=== PATIENT | male | born 1930 | race Caucasian/White ===

== ENCOUNTER 2020-10-12 20:54 | Inpatient (IN) | payer MEDICARE, MEDICAID ==
[~2020-10-12] VITALS: Ht 172.7 cm; Wt 73.6 kg
[~2020-10-12 20:54] MED LIST: ALBUTEROL; ASPI81CH21 PO; BRIN1OPH OU; DILT30TA PO; DOCU100C17 PO; DOCU5LIQ PO; ECOT81TA5 PO; FLOM0.4C39 PO; FURO20TA2 PO; INCR1INH INH; IPRATROPIUM; LEVO500I7 PO; MAPA500C PO; METO1TAB32 PO; MM S100C PO; PERF20NE2 INH; PRED10TA2 PO; PRED20TA PO; PROV108A INH; SENO8.6T9 PO; SPIRIVA INH; SYMB16INH INH; SYMBICORT; TYLE325T5 PO; VENTAER IN; XALA0.007 OU
[2020-10-12 22:45] VITALS: BP 102/56
[2020-10-12] MEDS ORDERED: MAALOX 30 ML SUSP *UDC PO PRN (22:45)
[2020-10-12] MEDS ORDERED: MOM 30ML SUSPENSION UDC PO PRN (22:45)
--- NOTE | 2020-10-12 23:17 | HPEPDOC ---
General Date of Admission Oct 12, 2020 at 22:38 Date of Service: Oct 12, 2020 Attending Physician: MARILU GOMEZ MD Chief Complaint shortness of breath History of Present Illness This is a 89 year old gentleman who presents to [facility], [place] with c/o shortness of breath since last June, but has gotten progressively worse . He states he has been coughing up more sputum more than usual and has been febrile at home, but denies chills. At [facility] ER, he was found to be COVID positive and in rapid Afib and was transferred here for a higher level of care. 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 Urinary stent placement. Knee surgery, unknown side Family history: Siblings, brother 1deceased at age 62. Liver and stomach cancer. Brother 2 alive, heart disease Sister , leukemia. Father , heart attack. Mother , stroke. Daughter, fibromyalgia, kidney problems Social history: Quit smoking 1997 Rare alcohol use; denies illicit drug use PHYSICAL EXAM: VS: see below VITALS: See below. GENERAL: Pt is laying comfortably, mild respiratory distress, audible wheezing, no deficits in speech and language HEENT: EOMI. Conjunctiva and lids normal. CARDIOVASCULAR: Regular rate and rhythm. No murmurs, rubs, or gallops appreciated. PULMONARY: wheezing appreciated, rhonci in bilat bases. ABD: No tenderness to palpation. Normoactive bowel sounds to all four quadrants. No guarding on palpation EXTREMITIES: 2+ DP pulses. trace pitting edema. NEURO: No focal neurological deficits. CN II-12 preserved. Strength 5/5 througho ut; sensation intact ASSESSMENT AND PLAN #Severe Sepsis #lactic acidosis - meet sirs criteria: leukocytosis, febrile, RR>22 -AAOX3, soft blood pressure initially in one teens on the tele monitor during examination - In [facility] ER received fluid resusictation - will start him on LR @200cc/h - will order UA with cx and blood cx x2 ordered pending - will order sputum cx and gram stain - procal pending - started on IV vanc and zosyn - will order for MRSA screen and close monitor of vanc trough - will order XR chest ordered #Afib RVR - [facility] started pt on cardizem gtt - EKG reviewed - Will start pt on digoxin for rate control. - Will start eliquis for anticoagulation - HR was 130s, and the last measured was one teens. - ECHO ordered- pending - am team consider consultation cardio as needed. - f/u with pro bnp and tsh and t3 serial trops and ECHO results #PNA - Procal pending - C/W vanc and zosyn for empiric covg - pending sputum cx blood and ua urine cx #CHF ? (unspecified) -ECHO ordered- pending - will hold diuresis as patient -c/w home meds #COVID 19 -Per nursing, [facility] ED nurse said that he was admitted to [facility] 2 weeks ago and tested positive then -decadron 6 iv daily - famotidine #Essential HTN -c/w home med DVT ppx: eliquis gi ppx :famotidine fluid LR @200cc/h Diet: 2gNa code status: full Home Medications Scheduled Aspirin (Aspirin EC) 81 Mg Tablet.dr, 81 MG PO DAILY, (Reported) Budesonide/Formoterol (Symbicort 160-4.5 Mcg Inhaler) 6 Gm Hfa.aer.ad, 2 PUFF INH BID, (Reported) Denosumab Injection (Prolia) 60 Mg/1 Ml Syringe, 60 MG SC ASDIRECTED, (Reported) EVERY 6 MONTHS: TAKEN AROUND September Digoxin (Digoxin) 125 Mcg Tablet, 125 MCG PO DAILY, (Reported) Docusate Sodium (Docusate Sodium) 100 Mg Capsule, 100 MG PO BID, (Reported) Metoprolol Succinate (Metoprolol Succinate) 50 Mg Tab.er.24h, 50 MG PO DAILY, (Reported) Midodrine HCl (Midodrine HCl) 2.5 Mg Tablet, 2.5 MG PO TID, (Reported) Scopolamine (Transderm-Scop) 1 Each Patch.td.3, 1.5 MG TOP Q3RD, (Reported) Tamsulosin HCl (Flomax) 0.4 Mg Capsule, 0.4 MG PO DAILY, (Reported) Travoprost (Travatan Z) 0.004% 2.5ML Drops, 1 DROP OU QHS, (Reported) Umeclidinium [place] (Incruse Ellipta) 62.5 Mcg Blst.w.dev, 1 PUFF INH DAILY, (Reported) Vortioxetine Hydrobromide (Trintellix) 10 Mg Tablet, 10 MG PO DAILY, (Reported) dilTIAZem HCl (Diltiazem 24Hr Cd) 120 Mg Cap.er.24h, 120 MG PO DAILY, (Reported) Scheduled PRN Albuterol Sulfate (Proair Hfa) 8.5 Gm Hfa.aer.ad, 2 PUFF INH Q4H PRN for SHORTNESS OF BREATH, (Reported) Alprazolam (Alprazolam) 0.25 Mg Tablet, 0.25 MG PO TID PRN for ANXIETY, (Reported) Benzonatate (Benzonatate) 100 Mg Capsule, 100 MG PO Q8H PRN for COUGH, (Reported) Bisacodyl (Bisacodyl) 10 Mg Supp.rect, 10 MG TN DAILY PRN for CONSTIPATION, (Reported) Ipratropium/Albuterol Sulfate (Iprat-Albut 0.5-3(2.5) mg/3 ml) 3 Ml Ampul.neb, 3 ML INH TID PRN for SHORTNESS OF BREATH, (Reported) Ondansetron HCl (Ondansetron HCl) 4 Mg Tablet, 4 MG PO Q8H PRN for NAUSEA OR VOMITING, (Reported) Protein Supplement (Protein Powder) 454 Gm Powder, 1 DOSE PO BID PRN for WEIGHT LOSS, (Reported) Tramadol HCl (Tramadol HCl) 50 Mg Tablet, 50 MG PO BID PRN for PAIN, (Reported) Miscellaneous Medications [Patient Comment] , (Reported) MED REC COMPLETED VIA EXTERNAL MED HISTORY AND PHONE CALL WITH SPOUSE Allergies Coded Allergies: Sulfa (Sulfonamide Antibiotics) (Verified Adverse Reaction, Unknown, VOMIT, 10/12/20) A-FIB/CHADSVASC A-FIB History Current/History of A-Fib/PAF?: Yes Current PO Anticoag Therapy: Yes Vital Signs latest vs 97.4 irregular rhythm 99 RR 20 bp 92/51 MAP 65 4L NC satting 98% Plan / VTE VTE Prophylaxis Ordered?: Yes GME ATTESTATION GME ATTESTATION My faculty preceptor for this patient encounter was physically present during the encounter and was fully available. All aspects of the patient interview, examination, medical decision making process, and medical care plan development were reviewed and approved by the faculty preceptor. The faculty preceptor is aware and concurs with the plan as stated in the body of this note and will attest to such by his/her cosignature. GME ATTESTATION GME ATTESTATION My faculty preceptor for this patient encounter was physically present during the encounter and was fully available. All aspects of the patient interview, examination, medical decision making process, and medical care plan development were reviewed and approved by the faculty preceptor. The faculty preceptor is aware and concurs with the plan as stated in the body of this note and will attest to such by his/her cosignature. ATTENDING NOTE Time of service 1129 pm is an 89 yr old w a hx of HTN, CAD, CHF, DLP, COPD, O2 dependence, Afib, CKD and BPH who was transferred from [facility] for management of rapid a fib, sepsis 2/2 PNA & acute COPD. He was diagnosed with COVID 19, 2 weeks ago but his test is still positive. rest per 's H&P Abelardo Holland DO Oct 12, 2020 23:17 MARILU GOMEZ MD Oct 13, 2020 07:18
[2020-10-12 23:55] LABS: INR 1.38; PROTHROMBIN TIME 17.3 SECONDS (12.5-14.3)
[2020-10-12 23:58] LABS: D-DIMER QUANT 2841.75 ng/ml (<500)
[2020-10-13] VITALS (32 sets, daily range): BP systolic 79–111; BP diastolic 48–66
[2020-10-13 00:10] LABS: HEMATOCRIT 28.6 % (42.0-52.0); HEMOGLOBIN 8.5 g/dl (13.5-17.5); MEAN CORPUSCULAR HEMOGLOBIN 22.4 pg (27.0-33.0); MEAN CORPUSCULAR HGB CONC 29.7 g/dl (32.0-36.5); MEAN CORPUSCULAR VOLUME 75.5 fl (80.0-96.0); PLATELET COUNT, AUTOMATED 619 10^3/uL (150-450); RED BLOOD COUNT 3.79 10^6/uL (4.30-6.10); WHITE BLOOD COUNT 29.9 10^3/uL (4.0-10.0)
[2020-10-13 00:16] LABS: ALBUMIN 2.3 GM/DL (3.2-5.2); ALT/SGPT 10 U/L (12-78); BILIRUBIN,TOTAL 0.9 MG/DL (0.2-1.0); BLOOD UREA NITROGEN 22 MG/DL (7-18); CALCIUM LEVEL 7.3 MG/DL (8.8-10.2); CARBON DIOXIDE LEVEL 26 MEQ/L (21-32); CHLORIDE LEVEL 105 MEQ/L (98-107); CREATININE FOR GFR 0.84 MG/DL (0.70-1.30); GLOMERULAR FILTRATION RATE > 60.0 (>35); GLUCOSE, FASTING 149 MG/DL (70-100); MAGNESIUM LEVEL 2.2 MG/DL (1.8-2.4); POTASSIUM SERUM 4.3 MEQ/L (3.5-5.1); SODIUM LEVEL 142 MEQ/L (136-145); TOTAL PROTEIN 5.7 GM/DL (6.4-8.2); TROPONIN I 0.02 NG/ML (< 0.10)
[2020-10-13] MEDS ORDERED: VANCOMYCIN HCL 1,000 MG in IV FLUID PLACE HOLDER 1 EA IV SCH (00:20)
[2020-10-13] MEDS ORDERED: VANCOMYCIN HCL 500 MG in D5W MINI-BAG PLUS 100 ML IV ONE (01:05)
[2020-10-13] MEDS: LR 1,000 ML IV SCH ×4 (01:34→18:10)
[2020-10-13] MEDS: DIGOXIN INJ 0.5 MG/2 ML AMP (J1160) IV SCH ×2 (01:35→03:40)
--- NOTE | 2020-10-13 01:55 | REPVR ---
PROCEDURE INFORMATION: Exam: XR Chest Exam date and time: 10/13/2020 1:09 AM Age: 89 years old Clinical indication: Other: Sepsis TECHNIQUE: Imaging protocol: XR of the chest Views: 1 view. COMPARISON: CR CHEST 2 VIEWS 12/15/2014 9:21 AM FINDINGS: Lungs: Interstitial scarring in the lung bases. Lungs are mildly hyperinflated. Possible retrocardiac opacity in the left lung base. Pleural spaces: Pleural thickening versus trace left pleural effusion. No pneumothorax. Heart/Mediastinum: Mild cardiomegaly. Bones/joints: Unremarkable. IMPRESSION: 1. Possible left basilar pneumonia. 2. Hyperinflation and chronic lung changes. Electronically signed by: Kofi Vance On 10/13/2020 01:55:04 AM
[2020-10-13] MEDS ORDERED: VANCOMYCIN HCL 1,000 MG, VIAL MATE ADAPTER 1 EACH in NS 250 ML IV SCH (04:00)
[2020-10-13 05:06] LABS: HEMATOCRIT 25.5 % (42.0-52.0); HEMOGLOBIN 7.4 g/dl (13.5-17.5); MEAN CORPUSCULAR HEMOGLOBIN 21.8 pg (27.0-33.0); PLATELET COUNT, AUTOMATED 558 10^3/uL (150-450); WHITE BLOOD COUNT 19.3 10^3/uL (4.0-10.0)
[2020-10-13 05:35] LABS: BLOOD UREA NITROGEN 23 MG/DL (7-18); CALCIUM LEVEL 7.2 MG/DL (8.8-10.2); CARBON DIOXIDE LEVEL 27 MEQ/L (21-32); CHLORIDE LEVEL 107 MEQ/L (98-107); CREATININE FOR GFR 0.68 MG/DL (0.70-1.30); GLOMERULAR FILTRATION RATE > 60.0 (>35); GLUCOSE, FASTING 174 MG/DL (70-100); MAGNESIUM LEVEL 2.1 MG/DL (1.8-2.4); POTASSIUM SERUM 4.1 MEQ/L (3.5-5.1); SODIUM LEVEL 141 MEQ/L (136-145)
[2020-10-13 05:36] LABS: MAGNESIUM LEVEL 2.1 MG/DL (1.8-2.4); PHOSPHORUS LEVEL 3.1 MG/DL (2.5-4.9)
[2020-10-13 05:39] LABS: PERCENT SATURATION 3.2 % (19.7-50.0)
[2020-10-13 05:44] LABS: FREE T4 1.57 NG/DL (0.76-1.46); THYROID STIMULATING HORMONE 0.472 uIU/ML (0.358-3.740)
--- NOTE | 2020-10-13 05:53 | IPNPDOC ---
Subjective Date Seen The patient was seen on 10/13/20. Subjective Chief Complaint/HPI I was informed by nursing that patient's H/H dropped from 8.5 to 7.4. WIll order for 1PRBC to transfuse now and repeat H/H post transfusion. Patient is heard of hearing but gave verbal consent. He was able to repeat back what I asked and consented. Will hold eliquis for now. will order stool occult for blood Assessment /Plan Plan/VTE VTE Prophylaxis Ordered?: Yes VS, I&O, 24H, Fishbone Vital Signs/I&O Vital Signs Date Time Temp Pulse Resp B/P (MAP) Pulse Ox O2 Delivery O2 Flow Rate FiO2 10/13/20 05:00 92 81/50 (60) 100 Nasal Cannula 4.0 10/13/20 04:00 97.4 20 I&O- Last 24 Hours up to 6 AM 10/13/20 05:59 Intake Total 0 ml Output Total 0 ml Balance 0 ml Laboratory Data 24H LABS Laboratory Tests 2 10/12/20 23:34: Nucleated Red Blood Cells % (auto) 0.0, Prothrombin Time 17.3H, Prothromb Time International Ratio 1.38, D-Dimer, Quantitative 2841.75H, Anion Gap 11, Glomerular Filtration Rate > 60.0, Lactic Acid Level 2.2*H, Calcium Level 7.3L, Magnesium Level 2.2, Total Bilirubin 0.9, Aspartate Amino Transf (AST/SGOT) 10, Alanine Aminotransferase (ALT/SGPT) 10L, Alkaline Phosphatase 74, Troponin I 0.02, Total Protein 5.7L, Albumin 2.3L, Albumin/Globulin Ratio 0.7, Methicillin- Resist S.aureus DNA PCR NOT DETECTED 10/13/20 00:44: 10/13/20 04:53: Nucleated Red Blood Cells % (auto) 0.0, Anion Gap 7L, Glomerular Filtration Rate > 60.0, Calcium Level 7.2L, Magnesium Level 2.1, Troponin I < 0.02, Lactic Acid Followup at 4 Hours 1.7, Phosphorus Level 3.1, Iron Level 5L, Total Iron Binding Capacity 155L, Transferrin % Saturation 3.2L, Ferritin 194, QV-Stv-Y-Type Natriuretic Peptide 5046H, Thyroid Stimulating Hormone (TSH) 0.472, Free Thyroxine 1.57H 10/13/20 05:00: Urine Color AYAN, Urine Appearance HAZY, Urine pH 5.0, Urine Specific [place] 1.023, Urine Protein 2+H, Urine Glucose (UA) NEGATIVE, Urine Ketones 1+H, Urine Blood NEGATIVE, Urine Nitrite NEGATIVE, Urine Bilirubin NEGATIVE, Urine Urobilinogen 4.0H, Urine Leukocyte Esterase NEGATIVE, Urine WBC (Auto) 2, Urine RBC (Auto) 1, Urine Hyaline Casts (Auto) 0, Urine Bacteria (Auto) NEGATIVE, Urine Squamous Epithelial Cells 1, Urine Mucus (Auto) MODERATE, Urine Sperm (Auto) CBC/BMP Laboratory Tests 10/12/20 23:34 10/13/20 04:53 Microbiology Microbiology 10/13/20 Gram Stain, Received Pending 10/13/20 Sputum Culture, Received Pending 10/13/20 Blood Culture, Received Pending 10/12/20 Blood Culture, Received Pending Abelardo Holland DO Oct 13, 2020 05:53
[2020-10-13] MEDS ORDERED: HEPARIN SOD (PORCINE) 5000UNITS/ML 1ML VIAL/SYRINGE SC SCH (06:00)
[2020-10-13] MEDS: PIPERACILLIN/TAZOBACTAM SOD 2.25 GM in D5W MINI-BAG PLUS 50 ML IV SCH ×4 (06:27→23:23)
[2020-10-13] MEDS ORDERED: PERF20NE2 INH (06:40)
[2020-10-13] MEDS ORDERED: DOCU100C16 PO (06:40)
[2020-10-13] MEDS ORDERED: PROAAER10 INH (06:40)
[2020-10-13] MEDS ORDERED: ASPI-161 PO (06:40)
[2020-10-13] MEDS ORDERED: SYMB16INH INH (06:40)
[2020-10-13] MEDS ORDERED: DILT120C89 PO (06:40)
[2020-10-13] MEDS ORDERED: ONDA-83 PO (06:50)
[2020-10-13] MEDS ORDERED: SCOP1PAT2 TOP (06:50)
[2020-10-13] MEDS ORDERED: PROL60SO SC (06:50)
[2020-10-13] MEDS ORDERED: BISA10SU4 PR (06:50)
[2020-10-13] MEDS ORDERED: MIDO2.5T PO (06:50)
[2020-10-13] MEDS ORDERED: METO1TAB7 PO (06:50)
[2020-10-13] MEDS ORDERED: BENZ-18 PO (06:50)
[2020-10-13] MEDS ORDERED: TRAV04OPD OU (06:50)
[2020-10-13] MEDS ORDERED: [UNRECOGNIZED DRUG - CODE] PO (06:50)
[2020-10-13] MEDS ORDERED: FLOM0.4C39 PO (06:50)
[2020-10-13] MEDS ORDERED: BRIN10TA4 PO (06:50)
[2020-10-13] MEDS ORDERED: DIGO0.123 PO (06:50)
[2020-10-13] MEDS ORDERED: INCR1INH INH (06:50)
[2020-10-13] MEDS ORDERED: IPRA0.00 INH (06:50)
[2020-10-13] MEDS ORDERED: TRAM50TA2 PO (06:50)
[2020-10-13] MEDS ORDERED: ALPR0.25 PO (06:50)
[2020-10-13] MEDS ORDERED: PATIENT COMMENT (06:51)
[2020-10-13] MEDS ORDERED: SCOPOLAMINE 1MG TRANSDERMAL PATCH TOP SCH (07:15)
[2020-10-13] MEDS ORDERED: ALBUTEROL 90 MCG/ACT 8GM HFA INHALER INH PRN (07:15)
[2020-10-13] MEDS ORDERED: BISACODYL 10 MG SUPP PR PRN (07:15)
[2020-10-13] MEDS ORDERED: ONDANSETRON 4 MG TAB PO PRN (07:15)
[2020-10-13] MEDS ORDERED: traMADol 50 MG TAB PO PRN (07:15)
[2020-10-13] MEDS ORDERED: LR 1,000 ML IV ONE (07:15)
[2020-10-13] MEDS ORDERED: BENZONATATE 100 MG CAP PO PRN (07:15)
--- NOTE | 2020-10-13 07:52 | REP ---
INDICATION: swelling COMPARISON: None. TECHNIQUE: Duplex ultrasound of the lower extremity veins bilaterally. FINDINGS: The deep veins demonstrate normal compression, normal Doppler color flow and normal Doppler waveforms with respiration augmentation from the popliteal veins to the common femoral veins bilaterally. IMPRESSION: There is no deep vein thrombus in the right or left lower extremities. <Electronically signed by Americo Amaro > 10/13/20 0749
[2020-10-13] MEDS ORDERED: PANTOPRAZOLE 40MG TAB (PROTONIX) PO SCH (09:00)
[2020-10-13] MEDS ORDERED: dexameTHASONE 20MG/5ML VIAL (J1100 PER 1MG) IV SCH (09:00)
[2020-10-13] MEDS ORDERED: DIGOXIN INJ 0.5 MG/2 ML AMP (J1160) IV SCH (09:00)
[2020-10-13] MEDS ORDERED: ASPIRIN 81MG ENTERIC TABLET PO SCH (09:00)
[2020-10-13] MEDS ORDERED: FAMOTIDINE 20 MG TAB PO SCH (09:00)
[2020-10-13] MEDS ORDERED: DIGOXIN 0.125 MG TAB PO SCH (09:00)
[2020-10-13] MEDS ORDERED: APIXABAN 5 MG TAB (ELIQUIS) PO SCH (09:00)
[2020-10-13] MEDS: PANTOPRAZOLE 40MG VIAL (C9113 PER 1) IV SCH ×2 (09:13→20:15)
[2020-10-13] MEDS: predniSONE 20 MG TAB PO SCH (09:16)
[2020-10-13] MEDS ORDERED: DIGOXIN INJ 0.5 MG/2 ML AMP (J1160) IV ONE (10:00)
--- NOTE | 2020-10-13 10:23 | ECGEPIP ---
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
[2020-10-13] MEDS: COMBIVENT RESPIMAT 100-20MCG INHALER 4GM INH SCH ×3 (10:29→19:39)
--- NOTE | 2020-10-13 10:56 | REP ---
INDICATION: r/o DVT. COMPARISON: None. TECHNIQUE: Bilateral duplex venous ultrasound the upper extremities. FINDINGS: The internal jugular, axillary, brachial, basilic, and cephalic veins are anechoic and compressible in the right upper extremity. Color flow imaging is homogeneous. Spectral Doppler interrogation is unremarkable. In the left upper extremity the internal jugular, axillary, brachial, and basilic veins are anechoic and compressible. The left cephalic vein was not seen. There is no evidence of deep venous thrombosis. There is no evidence of upper extremity venous thrombosis. IMPRESSION: The left cephalic vein was not seen. Otherwise negative bilateral upper extremity venous ultrasound. No evidence of deep venous thrombosis.. <Electronically signed by Major Licona > 10/13/20 2382
[2020-10-13 11:15] LABS: CORTISOL AM 19.2 UG/DL (4.3-22.4)
[2020-10-13 11:16] LABS: FOLATE 10.3 NG/ML (>5.4)
[2020-10-13] MEDS: MIDODRINE 2.5 MG TAB PO SCH ×2 (12:24→16:17)
[2020-10-13] MEDS: SUCRALFATE 1 GM TAB PO SCH ×3 (12:24→20:15)
--- NOTE | 2020-10-13 12:49 | IPNPDOC ---
Text Note Date of Service The patient was seen on 10/13/20. NOTE Subjective: Patient is an 89-year-old male with a PMhx of HTN, Diastolic CHF, Chronic hypoxic respiratory failure 2/2 COPD, Hx of COVID-19 infection who presented to the ER at [facility] with complaints of shortness of breath and palpitations. She was found to be in A. fib with RVR was transferred to [facility] emergency room. He had reported that he was experiencing a productive cough and fevers at home. Upon arrival to emergency room, patient was febrile. He was admitted to the hospital service for further evaluation and treatment. Patient was seen and examined at the bedside. Currently patient reports that he's feeling better. Denies any headache, nausea, vomiting, chest pain or palpitations, abdominal pain, diarrhea, discomfort with urination. Reported that his last bowel movement was yesterday and was darker than usual; before that his last bowel movement was 5 days prior. Patient reports that his breathing is doing better at baseline he uses 4 L of nasal cannula oxygen. Objective: Vitals (See below) General: Lying in bed, appears comfortable, AAOx3 HEENT: NC, AT CVS: +S1S2 Lungs: Fair air entry b/l, crackles and rhonchi at left lung base. No wheezing noted Abdomen: Soft, nondistended and nontender Extremities: No evidence of edema, - Calf tenderness Imaging: CXR 10/13: 1. Possible left basilar pneumonia. 2. Hyperinflation and chronic lung changes. Duplex US LE 10/13: There is no deep vein thrombus in the right or left lower extremities. Duplex US UE 10/13: The left cephalic vein was not seen. Otherwise negative bilateral upper extremity venous ultrasound. No evidence of deep venous thrombosis.. Assessment and plan: Shortness of breath / cough - likely 2/2 bacterial pneumonia, possibly 2/2 COVID-19 (less likely) - Presented as a transfer from [facility] for A. fib - Had reported productive cough and fevers at home - Leukocytosis - remain stable - s/p Lactic acidosis - Blood cultures 10/13: Pending - Sputum cultures 10/13: Many gram-positive cocci pairs, chains and clusters, many gram-negative rods - PCT pending - Imaging noted above - c/w Vancomycin and Zosyn (Day #2) COVID-19 - As per documentation, patient was noted to be positive on 09/29, however, review of healthy connections shows negative test - COVID19 positive on 10/12 - c/w Prednisone for now - c/w Supportive care Chronic hypoxic respiratory failure - Patient is currently on baseline level of oxygen s/p Lactic acidosis A. fib with RVR - Currently patient appears comfortable; denies chest pain, shortness of breath or palpitations - Heart rate appears better controlled - Troponin 3 negative - Thyroid function noted - ECHO pending - s/p Cardizem / Metoprolol - c/w Digoxin; will check Digoxin level in AM - Will hold anticoagulation (re: possible GI bleed) Normocytic anemia - Hemoglobin has trended down; possibly from IV fluid hydration - Has reported dark stool yesterday - Occult stool pending - Will transfuse 2 units PRBC - Will start Protonix / Carafate Thrombocytosis - likely 2/2 reactive etiology - Will continue to follow Chronic COPD - Does not appear to have any signs of exacerbation - c/w Inhaled therapy as ordered Chronic hypotension - c/w Midodrine Anxiety - c/w Xanax PRN GI prophylaxis - c/w Protonix / Carafate DVT prophylaxis - c/w TEDs/Sequentials for now (Re: possible GI bleed) VS,[place], I+O VS, Fishbone, I+O Laboratory Tests 10/12/20 23:34 10/13/20 04:53 Vital Signs Date Time Temp Pulse Resp B/P (MAP) Pulse Ox O2 Delivery O2 Flow Rate FiO2 10/13/20 11:15 96.2 100 21 96/51 98 Nasal Cannula 3.0 I&O- Last 24 Hours up to 6 AM 10/13/20 06:00 Intake Total 1380 ml Output Total 275 ml Balance 1105 ml BLAYNE FRIEDMAN MD Oct 13, 2020 12:49
[2020-10-13 15:40] LABS: HEMATOCRIT 30.7 % (42.0-52.0); HEMOGLOBIN 9.6 g/dl (13.5-17.5)
[2020-10-13] MEDS: LATANOPROST 0.005% OPHTH SOLN 2.5 ML OU SCH (20:15)
--- NOTE | 2020-10-13 23:32 | IPNPDOC ---
Text Note Date of Service The patient was seen on 10/13/20. NOTE The pt is no longer on IV meds for rapid afib and will be downgraded to PCU w tele. VSVeronica, I+O VSVeronica, I+O Laboratory Tests 10/12/20 23:34 10/13/20 04:53 10/13/20 15:31 Vital Signs Date Time Temp Pulse Resp B/P (MAP) Pulse Ox O2 Delivery O2 Flow Rate FiO2 10/13/20 20:00 2.0 10/13/20 20:00 96.8 97 20 94/54 (67) 97 Nasal Cannula I&O- Last 24 Hours up to 6 AM 10/13/20 06:00 Intake Total 1380 ml Output Total 275 ml Balance 1105 ml MARILU GOMEZ MD Oct 13, 2020 23:32
[2020-10-14] VITALS (17 sets, daily range): BP systolic 91–114; BP diastolic 53–73; O2SAT 88–98
[2020-10-14] MEDS: COMBIVENT RESPIMAT 100-20MCG INHALER 4GM INH SCH ×4 (02:55→19:48)
[2020-10-14] MEDS: PIPERACILLIN/TAZOBACTAM SOD 2.25 GM in D5W MINI-BAG PLUS 50 ML IV SCH (06:39)
[2020-10-14 07:44] LABS: BASO % 0.1 % (0.0-1.0); HEMATOCRIT 30.3 % (42.0-52.0); HEMOGLOBIN 9.2 g/dl (13.5-17.5); MEAN CORPUSCULAR HEMOGLOBIN 23.6 pg (27.0-33.0); MEAN CORPUSCULAR HGB CONC 30.4 g/dl (32.0-36.5); MEAN CORPUSCULAR VOLUME 77.7 fl (80.0-96.0); MONO % 3.8 % (2.0-8.0); NEUTROPHILS # 23.7 10^3/uL (1.5-8.5); NEUTROPHILS % 90.8 % (36.0-66.0); PLATELET COUNT, AUTOMATED 498 10^3/uL (150-450); WHITE BLOOD COUNT 26.1 10^3/uL (4.0-10.0)
[2020-10-14 08:21] LABS: BLOOD UREA NITROGEN 18 MG/DL (7-18); CALCIUM LEVEL 7.1 MG/DL (8.8-10.2); CARBON DIOXIDE LEVEL 27 MEQ/L (21-32); CHLORIDE LEVEL 110 MEQ/L (98-107); CREATININE FOR GFR 0.52 MG/DL (0.70-1.30); DIGOXIN LEVEL 1.3 NG/ML (0.5-2.0); GLOMERULAR FILTRATION RATE > 60.0 (>35); GLUCOSE, FASTING 133 MG/DL (70-100); MAGNESIUM LEVEL 2.2 MG/DL (1.8-2.4); POTASSIUM SERUM 3.5 MEQ/L (3.5-5.1); SODIUM LEVEL 141 MEQ/L (136-145)
[2020-10-14] MEDS: predniSONE 20 MG TAB PO SCH (08:55)
[2020-10-14] MEDS: SUCRALFATE 1 GM TAB PO SCH ×3 (08:55→16:35)
[2020-10-14] MEDS: PANTOPRAZOLE 40MG VIAL (C9113 PER 1) IV SCH (08:55)
[2020-10-14] MEDS ORDERED: ISOVUE-370 76% 100ML VIAL As Ordered ONE (09:16)
--- NOTE | 2020-10-14 09:58 | REP ---
INDICATION: Recurrent pneumonia. COMPARISON: Comparison is made with chest x-ray from October 13, 2020. Comparison chest CT study January 12, 2014.. TECHNIQUE: Contrast dose: 75 ML of Isovue [address] technique: Helical scanning is acquired and overlapping 1.5 mm and contiguous 3 mm axial images are reformatted. In addition, maximum intensity projection and multiplanar re-formation images are generated in sagittal and coronal imaging projections. FINDINGS: There is good opacification in the pulmonary arterial tree. There is no evidence of vessel cut off or filling defect to suggest pulmonary embolus. Homogeneous opacity is seen in the thoracic aorta. There is no evidence of aneurysm or dissection. The central pulmonary arteries are somewhat prominent which raise question of pulmonary arterial hypertension. Right atrium and right ventricle are believed to be somewhat dilated. Left atrium is mildly enlarged. There is some reflux of contrast opacified blood into the hepatic veins and intrahepatic vena cava suggesting right heart for the insufficiency. No hilar or mediastinal mass or adenopathy is seen. There is some left coronary artery vascular calcification. Lung window settings demonstrate small bilateral pleural effusions. There is compressive atelectasis in the left lower lobe. Emphysematous changes are noted particularly in the right lower lobe and in the lung apices. There is some interstitial fibrosis in the right anterior upper lobe region. Peripheral fibrosis is seen laterally and posteriorly in the upper lobe and right lower lobe. No definite infiltrate. No bony destructive lesion is seen. In the upper abdomen, there are parapelvic and cortical cysts in the kidneys. Normal adrenal glands. IMPRESSION: No CT evidence of pulmonary embolus. CHF pattern. Small bilateral pleural effusions. Bilateral lower lobe compressive atelectasis and upper lobe fibrosis. No definite focal infiltrate <Electronically signed by Major Licona > 10/14/20 [id number]
[2020-10-14] MEDS: MIDODRINE 2.5 MG TAB PO SCH ×3 (10:31→16:24)
[2020-10-14] MEDS: METOPROLOL TART 12.5 MG PER 1/2 TAB PO SCH ×2 (10:32→17:22)
--- NOTE | 2020-10-14 10:48 | IPNPDOC ---
Text Note Date of Service The patient was seen on 10/14/20. NOTE Subjective: Patient is an 89-year-old male with a PMhx of HTN, Diastolic CHF, Chronic hypoxic respiratory failure 2/2 COPD, Hx of COVID-19 infection who presented to the ER at [facility] with complaints of shortness of breath and palpitations. She was found to be in A. fib with RVR was transferred to [facility] emergency room. He had reported that he was experiencing a productive cough and fevers at home. Upon arrival to emergency room, patient was febrile. He was admitted to the hospital service for further evaluation and treatment. Patient was seen and examined at the bedside. Patient is seen sitting up in bed, appears to be comfortable. Denies any chest pain or palpitations. Reports that he is wheezing. Has not experience any nausea, vomiting or abdominal pain. Has had a bowel movement yesterday that was not noted to be dark. Objective: Vitals (See below) General: Sitting up in bed, appears comfortable, awake and alert, oriented 3 HEENT: Normocephalic and atraumatic CVS: +S1S2 Lungs: There appears to be fair air entry bilaterally; there is diffuse wheezing noted. Faint crackles, no rhonchi Abdomen: Without distention or tenderness. Abdomen remains soft Extremities: Lower extremities are without any edema, - Calf tenderness Imaging: CXR 10/13: 1. Possible left basilar pneumonia. 2. Hyperinflation and chronic lung changes. Duplex US LE 10/13: There is no deep vein thrombus in the right or left lower extremities. Duplex US UE 10/13: The left cephalic vein was not seen. Otherwise negative bilateral upper extremity venous ultrasound. No evidence of deep venous thrombosis.. CTA Chest 10/14: No CT evidence of pulmonary embolus. CHF pattern. Small bilateral pleural effusions. Bilateral lower lobe compressive atelectasis and upper lobe fibrosis. No definite focal infiltrate Assessment and plan: Shortness of breath / cough - likely 2/2 A. fib; less likely 2/2 bacterial pneumonia, possibly 2/2 COVID-19 (less likely) - Presented as a transfer from [facility] for A. fib - Had reported productive cough and fevers at home - s/p Lactic acidosis - Blood cultures 10/13: Negative at 24 hours - Sputum cultures 10/13: Many gram-positive cocci pairs, chains and clusters, many gram-negative rods - PCT mildly elevated; will trend - Imaging noted above - Will start Augmentin; will DC Zosyn; s/p Vancomycin (Antibiotic day #3) A. fib with RVR - Currently patient appears comfortable; denies chest pain, shortness of breath or palpitations - Heart rate appears better controlled - Troponin 3 negative - Thyroid function noted - ECHO pending - s/p Cardizem - c/w Digoxin; Digoxin level noted - Will resume Metoprolol today - Will hold anticoagulation (re: possible GI bleed) Leukocytosis - Patient has a long-standing history of leukocytosis - Patient was referred to an oncologist recently for evaluation on 10/06; Possible workup for JAK2 BCR ABL - Will check Peripheral smear COVID-19 - As per documentation, patient was noted to be positive on 09/29, however, review of healthy connections shows negative test - COVID19 positive on 10/12 - c/w Prednisone (was on taper as an outpatient) - c/w Supportive care Chronic hypoxic respiratory failure - Patient repots 4L of oxygen use at home; currently is at 2L s/p Lactic acidosis Normocytic anemia - Hemoglobin has improved after transfusions - No dark bowel movement noted recently - Occult stool pending - s/p 2 units PRBC - c/w Protonix / Carafate Thrombocytosis - likely 2/2 reactive etiology; possibly 2/2 Iron deficiency - Will continue to follow Chronic COPD - Wheezing noted this morning - c/w Inhaled therapy as ordered - c/w Prednisone (was on taper as an outpatient) Chronic hypotension - Will check orthostatic vital signs - Was started as an outpatient on 10/10 - c/w Midodrine; will increase dose Anxiety - c/w Xanax PRN GI prophylaxis - c/w Protonix / Carafate DVT prophylaxis - c/w TEDs/Sequentials for now (Re: possible GI bleed) Disposition: - Pending clinical improvement Veronica GRANADOS, I+O VSVeronica, I+O Laboratory Tests 10/13/20 15:31 10/14/20 07:25 Vital Signs Date Time Temp Pulse Resp B/P (MAP) Pulse Ox O2 Delivery O2 Flow Rate FiO2 10/14/20 08:53 96.9 96 21 103/67 (79) 95 Nasal Cannula 2.0 I&O- Last 24 Hours up to 6 AM 3/27/21 06:00 Intake Total 5045 ml Output Total 600 ml Balance 4445 ml BLAYNE FRIEDMAN MD Oct 14, 2020 10:48
[2020-10-14] MEDS: AUGMENTIN 875 MG TAB PO SCH ×2 (12:27→20:23)
[2020-10-14 13:01] LABS: HEMATOCRIT 31.4 % (42.0-52.0); HEMOGLOBIN 9.7 g/dl (13.5-17.5)
[2020-10-14] MEDS ORDERED: METOPROLOL TART 12.5 MG PER 1/2 TAB PO ONE (17:40)
[2020-10-14] MEDS: APIXABAN 5 MG TAB (ELIQUIS) PO SCH (20:26)
[2020-10-14] MEDS: LATANOPROST 0.005% OPHTH SOLN 2.5 ML OU SCH (20:26)
[2020-10-14] MEDS: METOPROLOL TART 25 MG TABLET PO SCH (23:37)
[2020-10-15] VITALS (10 sets, daily range): BP systolic 90–131; BP diastolic 52–75; O2SAT 98–99
[2020-10-15] MEDS: COMBIVENT RESPIMAT 100-20MCG INHALER 4GM INH SCH ×4 (02:57→20:50)
[2020-10-15] MEDS: METOPROLOL TART 25 MG TABLET PO SCH ×3 (05:45→18:30)
[2020-10-15 06:45] LABS: BASO % 0.1 % (0.0-1.0); HEMATOCRIT 30.6 % (42.0-52.0); HEMOGLOBIN 9.3 g/dl (13.5-17.5); LYMPH # 1.8 10^3/uL (1.5-5.0); LYMPH % 8.4 % (24.0-44.0); MEAN CORPUSCULAR HEMOGLOBIN 23.8 pg (27.0-33.0); MEAN CORPUSCULAR HGB CONC 30.4 g/dl (32.0-36.5); MEAN CORPUSCULAR VOLUME 78.3 fl (80.0-96.0); MONO # 1.1 10^3/uL (0.0-0.8); MONO % 5.5 % (2.0-8.0); NEUTROPHILS # 17.7 10^3/uL (1.5-8.5); NEUTROPHILS % 84.8 % (36.0-66.0); PLATELET COUNT, AUTOMATED 510 10^3/uL (150-450); RED BLOOD COUNT 3.91 10^6/uL (4.30-6.10); WHITE BLOOD COUNT 20.9 10^3/uL (4.0-10.0)
[2020-10-15 07:07] LABS: BLOOD UREA NITROGEN 18 MG/DL (7-18); CALCIUM LEVEL 7.3 MG/DL (8.8-10.2); CARBON DIOXIDE LEVEL 30 MEQ/L (21-32); CHLORIDE LEVEL 113 MEQ/L (98-107); CREATININE FOR GFR 0.55 MG/DL (0.70-1.30); GLOMERULAR FILTRATION RATE > 60.0 (>35); GLUCOSE, FASTING 106 MG/DL (70-100); MAGNESIUM LEVEL 2.3 MG/DL (1.8-2.4); POTASSIUM SERUM 4.2 MEQ/L (3.5-5.1); SODIUM LEVEL 146 MEQ/L (136-145)
[2020-10-15 07:45] LABS: C REACTIVE PROTEIN QUANTITATIV 6.83 MG/DL (0.00-0.30)
[2020-10-15] MEDS: SYMBICORT 160/4.5MCG INHALER 6GM INH SCH ×2 (08:00→20:50)
[2020-10-15] MEDS: MIDODRINE 2.5 MG TAB PO SCH ×3 (08:28→16:34)
[2020-10-15] MEDS: DOCUSATE SODIUM 100MG CAPSULE PO SCH ×2 (09:00→21:18)
[2020-10-15] MEDS: DIGOXIN 0.125 MG TAB PO SCH (09:21)
[2020-10-15] MEDS: OMEPRAZOLE 20 MG CAP PO SCH (09:21)
[2020-10-15] MEDS: guaiFENesin ER 600 MG TAB PO SCH ×2 (09:21→21:18)
[2020-10-15] MEDS: predniSONE 20 MG TAB PO SCH (09:21)
[2020-10-15] MEDS: APIXABAN 5 MG TAB (ELIQUIS) PO SCH ×2 (09:21→21:18)
[2020-10-15] MEDS: AUGMENTIN 875 MG TAB PO SCH ×2 (09:21→21:18)
--- NOTE | 2020-10-15 09:39 | IPNPDOC ---
Text Note Date of Service The patient was seen on 10/15/20. NOTE Subjective: Patient is an 89-year-old male with a PMhx of HTN, Diastolic CHF, Chronic hypoxic respiratory failure 2/2 COPD, Hx of COVID-19 infection who presented to the ER at [facility] with complaints of shortness of breath and palpitations. She was found to be in A. fib with RVR was transferred to [facility] emergency room. He had reported that he was experiencing a productive cough and fevers at home. Upon arrival to emergency room, patient was febrile. He was admitted to the hospital service for further evaluation and treatment. Patient was seen and examined at the bedside. Patient was seen sitting up in bed, reports that he feels fine. Denies any chest pain or palpitations. Her ports that he does experience a productive cough. Has not experience any nausea, vomiting, abdominal pain, diarrhea, or urinary discomfort. This morning he was able to be transitioned off oxygen completely and is saturating well on room air. Objective: Vitals (See below) General: Patient is sitting up in bed, has completed his breakfast appears comfortable, cooperative, not in any acute distress, is oriented to person, place and time HEENT: NC, AT CVS: +S1S2 Lungs: There appears to be fair air entry bilaterally. Mild wheezing can be appreciated bilaterally, faint crackles Abdomen: Again, his abdomen is soft without appreciated tenderness or distention Extremities: No edema of lower extremities is noted Imaging: CXR 10/13: 1. Possible left basilar pneumonia. 2. Hyperinflation and chronic lung changes. Duplex US LE 10/13: There is no deep vein thrombus in the right or left lower extremities. Duplex US UE 10/13: The left cephalic vein was not seen. Otherwise negative bilateral upper extremity venous ultrasound. No evidence of deep venous thrombosis.. CTA Chest 10/14: No CT evidence of pulmonary embolus. CHF pattern. Small bilateral pleural effusions. Bilateral lower lobe compressive atelectasis and upper lobe fibrosis. No definite focal infiltrate Assessment and plan: Shortness of breath / cough - likely 2/2 A. fib; less likely 2/2 bacterial pneumonia, possibly 2/2 COVID-19 (less likely) - Presented as a transfer from [facility] for A. fib - Had reported productive cough and fevers at home - s/p Lactic acidosis - Blood cultures 10/13: Negative at 48 hours - Sputum cultures 10/13: Many gram-positive cocci pairs, chains and clusters, many gram-negative rods - PCT mildly elevated; repeat pending - Imaging noted above; no definitive evidence of pneumonia - c/w Augmentin; s/p Vancomycin and Zosyn (Antibiotic Day #4) - Will start incentive spirometry / acapella / Mucinex A. 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 - Peripheral smear pending COVID-19 - As per documentation, patient was noted to be positive on 09/29, however, review of healthy connections shows negative test - Discussed with [facility]; first COVID19 positive test was on 07/29 and then 09/06; but was negative on 09/29, positive on 10/12 - First COVID19 positive on 07/29/2020 - c/w Prednisone; will begin taper - c/w Supportive care s/p Hypoxic respiratory failure - Patient reports that he has been started on oxygen since July after he had a COVID19 infection - Patient has been transitioned off of oxygen completely and is tolerating room air s/p Lactic acidosis Normocytic anemia - Hemoglobin has improved after transfusions - No dark bowel movement noted recently - Occult stool pending - s/p 2 units PRBC Thrombocytosis - likely 2/2 reactive etiology; possibly 2/2 Iron deficiency - Will continue to follow Chronic COPD - Mild wheezing noted - c/w Inhaled therapy as ordered - c/w Prednisone (was on taper as an outpatient) Chronic hypotension - Orthostatic vitals positive - Was started as an outpatient on 10/10 - c/w Midodrine at adjusted dose Anxiety - c/w Xanax PRN GI prophylaxis - c/w Omeprazole; s/p Protonix / Carafate DVT prophylaxis - c/w full anticoagulation with Eliquis Disposition: - Pending clinical improvement VS,Veronica, I+O VS, Veronica, I+O Laboratory Tests 10/14/20 12:06 10/15/20 06:34 Vital Signs Date Time Temp Pulse Resp B/P (MAP) Pulse Ox O2 Delivery O2 Flow Rate FiO2 10/15/20 09:21 112 10/15/20 08:49 20 131/64 (86) 97 Room Air 10/15/20 07:44 97.1 2.0 I&O- Last 24 Hours up to 6 AM 10/15/20 06:00 Intake Total 1450 ml Output Total 625 ml Balance 825 ml BLAYNE FRIEDMAN MD Oct 15, 2020 09:39
[2020-10-15] MEDS: TAMSULOSIN 0.4 MG CAP PO SCH (14:12)
[2020-10-16] VITALS: BP 125/70
[2020-10-16] MEDS: LATANOPROST 0.005% OPHTH SOLN 2.5 ML OU SCH ×2 (00:31→20:17)
[2020-10-16] MEDS: METOPROLOL TART 25 MG TABLET PO SCH ×4 (00:31→18:40)
[2020-10-16] MEDS: COMBIVENT RESPIMAT 100-20MCG INHALER 4GM INH SCH ×4 (01:50→20:32)
[2020-10-16] MEDS: GASTROGRAFIN SOLUTION 30ML PO SCH ×2 (03:33→04:00)
[2020-10-16 04:00] VITALS: BP 124/80
[2020-10-16] MEDS ORDERED: ISOVUE-370 76% 100ML VIAL As Ordered ONE (05:01)
[2020-10-16 06:24] LABS: BASO % 0.1 % (0.0-1.0); HEMATOCRIT 28.9 % (42.0-52.0); HEMOGLOBIN 8.6 g/dl (13.5-17.5); LYMPH # 2.1 10^3/uL (1.5-5.0); LYMPH % 13.3 % (24.0-44.0); MEAN CORPUSCULAR HEMOGLOBIN 23.4 pg (27.0-33.0); MEAN CORPUSCULAR HGB CONC 29.8 g/dl (32.0-36.5); MEAN CORPUSCULAR VOLUME 78.7 fl (80.0-96.0); MONO % 6.5 % (2.0-8.0); NEUTROPHILS # 12.7 10^3/uL (1.5-8.5); PLATELET COUNT, AUTOMATED 496 10^3/uL (150-450); RED BLOOD COUNT 3.67 10^6/uL (4.30-6.10); WHITE BLOOD COUNT 16.1 10^3/uL (4.0-10.0)
--- NOTE | 2020-10-16 06:28 | REPVR ---
PROCEDURE INFORMATION: Exam: CT Abdomen And Pelvis With Contrast Exam date and time: 10/16/2020 5:23 AM Age: 89 years old Clinical indication: Abdominal pain; Additional info: Sudden onsetsevere rlq, now bulge therewith pain TECHNIQUE: Imaging protocol: Computed tomography of the abdomen and pelvis with contrast. Radiation optimization: All CT scans at this facility use at least one of these dose optimization techniques: automated exposure control; mA and/or kV adjustment per patient size (includes targeted exams where dose is matched to clinical indication); or iterative reconstruction. Contrast material: ISO 370; Contrast volume: 100 ml; Contrast route: INTRAVENOUS (IV); COMPARISON: No relevant prior studies available. FINDINGS: Lungs: Small airspace opacity versus scarring in the lateral segment of the right middle lobe and consolidations in bilateral lung bases, left greater than right likely atelectasis and scarring, however, pneumonia should be ruled out clinically. Emphysematous changes most marked in the right lower lobe. Pleural spaces: Small to moderate bilateral pleural effusions. Heart: Cardiomegaly. Coronary calcifications. Small focal right-sided pericardial effusion versus pericardial cyst measuring 53 x 22 mm. Liver: Calcified granuloma in the liver. Lesions in the liver, largest 1 is in the right lobe measuring 23.2 x 24.5 mm (series 201, image 45), another 1 is more inferiorly in the right lobe of the liver measuring 14 mm. Few other small lesions are also seen. Gallbladder and bile ducts: Normal. No calcified stones. No ductal dilation. Pancreas: Mild to moderate fatty atrophy of the pancreas. 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 Adrenal glands: Normal. No mass. Kidneys and ureters: Right kidney demonstrate small isodense exophytic lesion umbilical arising from the upper pole measuring 6.2 mm. Simple cysts arising from the interpolar region of the left kidney measuring 27.3 mm. Left parapelvic cyst measuring 16 mm. No stones. No hydronephrosis. Stomach and bowel: Moderate fecal loading in the rectum. Diverticulosis without any CT evidence of diverticulitis. Fluid in nondistended colon may represent mild colitis. No small bowel dilatation or obstruction. Appendix: Appendix is not seen. Intraperitoneal space: Unremarkable. No free air. No significant fluid collection. Vasculature: Moderate atherosclerosis of the aorta and its branches. Lymph nodes: Unremarkable. No enlarged lymph nodes. Urinary bladder: Unremarkable as visualized. Reproductive: Unremarkable as visualized. Bones/joints: Diffuse demineralization of the bones with degenerative changes. Mild anterolisthesis of L4 on L5. Levoscoliosis of the lumbar spine. Soft tissues: Prior anterior abdominal wall hernia repair. IMPRESSION: Limited study secondary to motion artifact. Liver lesions concerning for metastatic disease as described above, further evaluation with contrast enhanced MRI examination is recommended. Moderate fecal loading in the rectum. Diverticulosis without any CT evidence of diverticulitis. Fluid in nondistended colon may represent mild colitis. No small bowel dilatation or obstruction. COMMENTS: Consistent with the [employer]'s Incidental Findings Committee white paper (J Am Tomás Radiol 2018): Any incidental renal lesion less than 1 cm or classified as too small to characterize, or any incidental cystic renal lesion characterized as simple-appearing, is likely benign. No follow-up imaging is recommended for these lesions per consensus recommendations based on imaging criteria. Electronically signed by: Jes Bennett On 10/16/2020 06:28:51 AM
[2020-10-16 06:39] LABS: BLOOD UREA NITROGEN 17 MG/DL (7-18); CALCIUM LEVEL 7.4 MG/DL (8.8-10.2); CARBON DIOXIDE LEVEL 28 MEQ/L (21-32); CHLORIDE LEVEL 110 MEQ/L (98-107); CREATININE FOR GFR 0.64 MG/DL (0.70-1.30); GLOMERULAR FILTRATION RATE > 60.0 (>35); GLUCOSE, FASTING 95 MG/DL (70-100); MAGNESIUM LEVEL 2.2 MG/DL (1.8-2.4); SODIUM LEVEL 143 MEQ/L (136-145)
[2020-10-16] MEDS ORDERED: MIRALAX *UNIT DOSE* 17GM PACKET PO PRN (07:00)
[2020-10-16] MEDS: SYMBICORT 160/4.5MCG INHALER 6GM INH SCH ×2 (07:07→20:32)
[2020-10-16 07:39] VITALS: BP 126/64
[2020-10-16] MEDS: MIDODRINE 2.5 MG TAB PO SCH (08:00)
[2020-10-16 08:49] LABS: C REACTIVE PROTEIN QUANTITATIV 3.51 MG/DL (0.00-0.30)
[2020-10-16] MEDS ORDERED: SLF 3 ML SYR IV PRN (08:55)
[2020-10-16] MEDS: predniSONE 20 MG TAB PO SCH (09:00)
[2020-10-16] MEDS: OMEPRAZOLE 20 MG CAP PO SCH (09:00)
[2020-10-16] MEDS: TAMSULOSIN 0.4 MG CAP PO SCH (09:00)
[2020-10-16] MEDS: SENOKOT S TAB PO SCH ×2 (10:04→20:17)
[2020-10-16] MEDS: guaiFENesin ER 600 MG TAB PO SCH ×2 (10:05→20:17)
[2020-10-16] MEDS: APIXABAN 5 MG TAB (ELIQUIS) PO SCH ×2 (10:05→20:17)
[2020-10-16] MEDS: DIGOXIN 0.125 MG TAB PO SCH (10:05)
[2020-10-16] MEDS: AUGMENTIN 875 MG TAB PO SCH ×2 (10:05→20:17)
[2020-10-16] MEDS: DOCUSATE SODIUM 100MG CAPSULE PO SCH ×2 (10:06→20:17)
--- NOTE | 2020-10-16 10:13 | ECHO ---
DATE OF PROCEDURE: 10/13/2020 Age: 89 Gender: Male PATIENT LOCATION: Room 3208. REFERRING PHYSICIAN: Dr. Holland. REASON FOR STUDY: Sepsis, COVID-19. 2D MEASUREMENTS: IVS 1.1 cm LV 4.3 cm LVPW 1.1 cm LA 3.5 cm Aorta 3.7 cm IVC 2.9 cm DOPPLER MEASUREMENT Peak velocity across the aortic valve 2.0 m/s Peak velocity across the LVOT 0.8 m/s Mitral E 1.2 Maximum tricuspid valve velocity 2.7 m/s 2D COMMENTS: 1. Normal left ventricular size and wall thickness, with a normal global left ventricular systolic function. The estimated systolic ejection fraction is 60% to 65%. 2. Normal left atrium. Moderately enlarged right atrium. Mildly dilated right ventricle. The right ventricular free wall seems to be giuliana well. 3. The atrial septum appeared to be normal without evidence of defect or shunt. 4. Borderline enlarged aortic root. 5. Trace pericardial effusion, no evidence of cardiac tamponade. 6. Mildly calcified aortic valve with normal leaflet excursion. Mildly calcified mitral annulus with normal anterior mitral valve left motion. Normal tricuspid valve. The pulmonic valve and proximal pulmonary artery branches were not well visualized. 7. The inferior vena cava was mildly enlarged, central venous pressure might be elevated. DOPPLER: It detects mild aortic regurgitation, mild mitral regurgitation, moderate tricuspid regurgitation. The calculated pulmonary artery systolic pressure varies between 30 to 40 mmHg. Assessment of the left ventricular diastolic function was limited in view of the underlying atrial fibrillation. IMPRESSION: 1. Normal global left ventricular systolic function. Assessment of the left ventricular diastolic function was inconclusive. 2. Aortic valve sclerosis with mild aortic stenosis and mild aortic regurgitation. 3. Mitral annular calcification with mild mitral regurgitation. 4. Moderate tricuspid regurgitation with mild pulmonary hypertension. Could not rule out more severe pulmonary hypertension. The right heart chambers were dilated. Right ventricular systolic function seems to be normal. 5. Trace pericardial effusion, no evidence of cardiac tamponade. 6. There were features of elevated central venous pressure, the inferior vena cava was mildly enlarged. MTDD
[2020-10-16 12:00] VITALS: BP 98/55
[2020-10-16] MEDS: MIDODRINE 5 MG TAB PO SCH ×2 (12:43→16:00)
--- NOTE | 2020-10-16 14:13 | IPNPDOC ---
Text Note Date of Service The patient was seen on 10/16/20. NOTE Subjective: No acute events overnight. Pt states that he still has a productive cough and SOB but it is not any worse than it was at admission. Reports that he does not have any chest pains or palpitations. C/o lower abd pain. Pt c/o slight headache since yesterday. Pt states that he does not have a hx of cancers. He has not had a colonoscopy in the past. Objective: VITALS: See below. GENERAL: Pt is laying down comfortably at rest. No acute distress. HEENT: NC/AT. EOMI. Conjunctiva and lids normal. CARDIOVASCULAR: Irregularly, irregular. Nl S1/S2. No murmurs, rubs, or gallops appreciated. PULMONARY: Diffuse rhonchi that clears with coughing. ABD: Abd soft and non-tender to palpation. Normoactive bowel sounds in all four quadrants. EXTREMITIES: No edema appreciated. 2+ DP pulses. NEURO: No gross neurological deficits appreciated. Imaging: CXR 10/13: 1. Possible left basilar pneumonia. 2. Hyperinflation and chronic lung changes. Duplex US LE 10/13: There is no deep vein thrombus in the right or left lower extremities. Duplex US UE 10/13: The left cephalic vein was not seen. Otherwise negative bilateral upper extremity venous ultrasound. No evidence of deep venous thrombosis.. CTA Chest 10/14: No CT evidence of pulmonary embolus. CHF pattern. Small bilateral pleural effusions. Bilateral lower lobe compressive atelectasis and upper lobe fibrosis. No definite focal infiltrate Assessment/Plan: Patient is an 89-year-old male with a PMhx of HTN, Diastolic CHF, Chronic hypoxic respiratory failure 2/2 COPD, Hx of COVID-19 infection who presented to the ER at [facility] with complaints of shortness of breath and palpitations. She was found to be in A. fib with RVR was transferred to [facility] emergency room. He had reported that he was experiencing a productive cough and fevers at home. Upon arrival to emergency room, patient was febrile. He was admitted to the hospital service for further evaluation and treatment. #SOB/cough - Likely 2/2 PNA vs atrial fibrillation - Pt has been afebrile and hemodynamically stable. - CXR shows possible L basilar pneumonia. - Lactic acid on initial presentation was 2.2 but has since been WNL, with last lactic acid being 1.5. - Blood cultures have been negative. MRSA screen negative. - Sputum culture shows many gram-positive cocci pairs, chains and clusters, many gram-negative rods - PCT elevated at 1.05 but repeat shows down trend at 0.62. - Continue Augmentin. - Will have pt start incentive spirometer and acapella #Atrial fibrillation with RVR - Pt is asymptomatic and reports no chest pain or palpitations. - HR is has improved and is 90-100. - Troponin 3 negative - Echo shows aortic valve sclerosis with mild aortic stenosis and mild aortic regurgitation, mitral annular calcification with mild mitral regurgitation, moderate tricuspid regurgitation with mild pulmonary hypertension, R heart chambers dilated, features of elevated central venous pressure, systolic ejection fraction 60-65%. - Will continue Digoxin 0.125 mg PO daily and Metoprolol 25 mg PO Q6H. - Cardizem 30 mg PO Q6H. - Anticoagulation on Eliquis 5 mg PO BID. 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 - Will have pt f/u with oncology regarding this issue. #Liver lesions - CT abd/pelvis with contrast showed liver lesions concerning of metastatic disease. Lesions in the liver, largest one is in the R lobe measuring 23.2 x 24.5 mm, another one is more interiorly in the R lobe of the liver measuring 14 mm. Few other small lesions are also seen. - Pt reports no hx of any cancers. - Origin of possible mets unknown at this time. - Will discuss with Dr. Dugan. - MRI of abd ordered for further evaluation. #Hx of COVID-19 - As per documentation, patient was noted to be positive on 09/29, however, r eview of healthy connections shows negative test - Discussed with [facility]; first COVID19 positive test was on 07/29/2020 and then 09/06; but was negative on 09/29, positive on 10/12 - First COVID19 positive on 07/29/2020 - Continue Prednisone; will begin to taper - Continue supportive care #Thrombocytosis - Likely 2/2 reactive etiology vs iron deficiency. - Will continue to follow with CBC's. #COPD - Chronic for pt as he has a hx of COPD. - Continue Prednisone. - Continue Proventil PRN and Albuterol. - Continue Symbicort RBID. #Chronic hypotension - Orthostatic vitals positive - Continue Midodrine at adjusted dose #Normocytic anemia - Hemoglobin has improved after transfusions - No dark bowel movement noted recently - Occult stool pending - s/p 2 units PRBC #Lactic acidosis - Resolved. - Lactic acid was 2.2 at time of admission. Most recent lactic acid on 10/14 was 1.5. #Anxiety - Xanax PRN. DVT Prophylaxis: Eliquis. Disposition: Pending clinical improvement. VS,Fishbone, I+O VS, Fishbone, I+O Laboratory Tests 10/16/20 05:50 Vital Signs Date Time Temp Pulse Resp B/P (MAP) Pulse Ox O2 Delivery O2 Flow Rate FiO2 10/16/20 10:06 84 126/64 10/16/20 07:39 96.9 19 93 Room Air 10/15/20 07:44 2.0 I&O- Last 24 Hours up to 6 AM 10/16/20 06:00 Intake Total 420 ml Output Total 1125 ml Balance -705 ml GME ATTESTATION GME ATTESTATION My faculty preceptor for this patient encounter was physically present during the encounter and was fully available. All aspects of the patient interview, examination, medical decision making process, and medical care plan development were reviewed and approved by the faculty preceptor. The faculty preceptor is aware and concurs with the plan as stated in the body of this note and will attest to such by his/her cosignature. ATTENDING NOTE I, Alicia Santos, have independently examined this patient and performed my own physical exam, as well as reviewed the documentation and edited where necessary. I have discussed in detail with the resident / student the findings and plan of treatment as documented by the resident / student and edited their note. I agree with their findings and treatment plan and have edited their documentation. I will continue to follow the patient during this hospital stay. Mira APARICIO S-3 Oct 16, 2020 12:45 MANDIE NEWTON D.O. Oct 16, 2020 14:35 ALICIA SANTOS MD Oct 16, 2020 19:11
[2020-10-16] MEDS: SLF 3 ML SYR IV SCH ×2 (14:40→20:18)
[2020-10-16 16:00] VITALS: BP 129/66
[2020-10-16 20:00] VITALS: BP 138/66
[2020-10-17] VITALS: BP 129/78
[2020-10-17] MEDS: METOPROLOL TART 25 MG TABLET PO SCH ×4 (00:39→17:33)
[2020-10-17] MEDS: COMBIVENT RESPIMAT 100-20MCG INHALER 4GM INH SCH ×3 (01:53→20:32)
[2020-10-17 04:10] VITALS: BP 117/58
[2020-10-17] MEDS: ALPRAZolam 0.25 MG TAB PO PRN ×2 (05:06→12:47)
[2020-10-17] MEDS: SLF 3 ML SYR IV SCH ×3 (05:13→21:58)
[2020-10-17 05:57] LABS: BASO % 0.1 % (0.0-1.0); HEMATOCRIT 30.4 % (42.0-52.0); LYMPH # 2.4 10^3/uL (1.5-5.0); LYMPH % 15.3 % (24.0-44.0); MEAN CORPUSCULAR HGB CONC 29.6 g/dl (32.0-36.5); MEAN CORPUSCULAR VOLUME 77.7 fl (80.0-96.0); MONO # 0.9 10^3/uL (0.0-0.8); MONO % 5.6 % (2.0-8.0); NEUTROPHILS # 12.4 10^3/uL (1.5-8.5); NEUTROPHILS % 77.8 % (36.0-66.0); PLATELET COUNT, AUTOMATED 530 10^3/uL (150-450); RED BLOOD COUNT 3.91 10^6/uL (4.30-6.10)
[2020-10-17 06:13] LABS: BLOOD UREA NITROGEN 16 MG/DL (7-18); CALCIUM LEVEL 7.8 MG/DL (8.8-10.2); CARBON DIOXIDE LEVEL 29 MEQ/L (21-32); CHLORIDE LEVEL 110 MEQ/L (98-107); CREATININE FOR GFR 0.65 MG/DL (0.70-1.30); GLOMERULAR FILTRATION RATE > 60.0 (>35); GLUCOSE, FASTING 106 MG/DL (70-100); MAGNESIUM LEVEL 2.1 MG/DL (1.8-2.4); POTASSIUM SERUM 4.2 MEQ/L (3.5-5.1); SODIUM LEVEL 143 MEQ/L (136-145)
[2020-10-17] MEDS: SYMBICORT 160/4.5MCG INHALER 6GM INH SCH ×2 (07:09→20:31)
[2020-10-17 08:00] VITALS: BP 137/71
[2020-10-17] MEDS ORDERED: PROHANCE 279.3MG/ML 15ML VIAL As Ordered ONE ×2 (08:48→09:23)
--- NOTE | 2020-10-17 09:44 | IPNPDOC ---
Text Note Date of Service The patient was seen on 10/17/20. NOTE Subjective: No acute events overnight. At the time of examination, pt was in the process of being taken down to MRI. Pt c/o SOB. Denies any chest pain, abd pain. States that he feels about the same as yesterday. Objective: VITALS: See below. GENERAL: Pt is laying down in bed. No acute distress but appears short of breath. HEENT: NC/AT. EOMI. Conjunctiva and lids normal. CARDIOVASCULAR: Irregularly, irregular. Nl S1/S2. No murmurs, rubs, or gallops appreciated. PULMONARY: Rhonchi appreciated b/l. No wheezing or rales. Good air movement otherwise. ABD: Abd soft and non-tender to palpation. Normoactive bowel sounds in all four quadrants. EXTREMITIES: No edema appreciated. 2+ DP pulses. NEURO: No gross neurological deficits appreciated. Imaging: CXR 10/13: 1. Possible left basilar pneumonia. 2. Hyperinflation and chronic lung changes. Duplex US LE 10/13: There is no deep vein thrombus in the right or left lower extremities. Duplex US UE 10/13: The left cephalic vein was not seen. Otherwise negative bilateral upper extremity venous ultrasound. No evidence of deep venous thrombosis.. CTA Chest 10/14: No CT evidence of pulmonary embolus. CHF pattern. Small bilateral pleural effusions. Bilateral lower lobe compressive atelectasis and upper lobe fibrosis. No definite focal infiltrate CT Abd/Pelvis w/ Contrast Limited study secondary to motion artifact. Liver lesions concerning for metastatic disease as described above, further evaluation with contrast enhanced MRI examination is recommended. Moderate fecal loading in the rectum. Diverticulosis without any CT evidence of diverticulitis. Fluid in nondistended colon may represent mild colitis. No small bowel dilatation or obstruction. 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 He was found to be in A. fib with RVR was transferred to [facility] emergency room. He had reported that he was experiencing a productive cough and fevers at home. Upon arrival to emergency room, patient was febrile. He was admitted to the hospital service for further evaluation and treatment. #SOB/cough - Likely 2/2 PNA vs atrial fibrillation - Pt has been afebrile and hemodynamically stable. - CXR shows possible L basilar pneumonia. - Lactic acid on initial presentation was 2.2 but has since been WNL, with last lactic acid being 1.5 on 10/14/20. - Blood cultures have been negative. MRSA screen negative. - Sputum culture shows many gram-positive cocci pairs, chains and clusters, many gram-negative rods - PCT elevated at 1.05 but repeat shows down trend at 0.62 on 10/14/20. - Continue Augmentin. - Continue incentive spirometer and acapella. #Atrial fibrillation with RVR - Pt is asymptomatic and reports no chest pain or palpitations. Troponins have been negative x3. - HR is has improved and is ranging from 68-100. - Echo shows aortic valve sclerosis with mild aortic stenosis and mild aortic regurgitation, mitral annular calcification with mild mitral regurgitation, moderate tricuspid regurgitation with mild pulmonary hypertension, R heart chambers dilated, features of elevated central venous pressure, systolic ejection fraction 60-65%. - Will continue Digoxin 0.125 mg PO daily and Metoprolol 25 mg PO Q6H. - Cardizem 30 mg PO Q6H. - Will hold Eliquis and start pt on Lovenox 80 mg SC Q12H as pt is scheduled for liver lesion biopsy. #Liver lesions - CT abd/pelvis with contrast showed liver lesions concerning of metastatic disease. Lesions in the liver, largest one is in the R lobe measuring 23.2 x 24.5 mm, another one is more interiorly in the R lobe of the liver measuring 14 mm. Few other small lesions are also seen. MRI was recommended. - Pt reports no hx of any cancers. - Origin of possible mets unknown at this time. - Discussed with Dr. Dugan. States that liver biopsy could be done outpatient but inpatient biopsy is also an option. He believes that leukocytosis is not due to these liver lesions but will follow up outpatient. - MRI showed 3 liver mass lesions noted as above suspicious for liver metastatic disease. Consider histologic sampling with US or CT guided needle biopsy. - Pt scheduled to have liver mass biopsy done through IR. Will hold Eliquis and start pt on Lovenox 80 mg SC Q12H for anticoagulation periprocedural. #Hx of COVID-19 - As per documentation, patient was noted to be positive on 09/29, however, review of healthy connections shows negative test - Discussed with [facility]; first COVID19 positive test was on 07/29/2020 and then 09/06; but was negative on 09/29, positive on 10/12 - First COVID19 positive on 07/29/2020 - Continue Prednisone; will begin to taper by 10 mg every 2 days - Continue supportive care #Leukocytosis - Patient has a long-standing history of leukocytosis. Patient was referred to an oncologist recently for evaluation on 10/06; Possible workup for JAK2 BCR ABL - Peripheral smear resulted with microcytic hypochromic anemia with moderate anisopoikilocytosis, leukocytosis with predominantly mature neutrophils, adequate morphologically unremarkable platelets, no atypical lymphocytes or blasts identified. - Will have pt f/u with oncology regarding this issue. #Thrombocytosis - Likely 2/2 reactive etiology vs iron deficiency. - Will continue to follow with CBC's. #COPD - Chronic for pt as he has a hx of COPD. - Continue Proventil PRN and Albuterol. - Continue Symbicort RBID. #Chronic hypotension - Orthostatic vitals positive - Continue Midodrine at adjusted dose #Normocytic anemia - Hemoglobin has improved and remained stable after transfusions - No dark bowel movement noted recently, occult stool pending - s/p 2 units PRBC #Lactic acidosis - Resolved. - Lactic acid was 2.2 at time of admission. Most recent lactic acid on 10/14 was 1.5. #Anxiety - Xanax PRN. DVT Prophylaxis: Eliquis. Disposition: Pending clinical improvement. VS,Fishbone, I+O VS, Fishbone, I+O Laboratory Tests 10/17/20 05:39 Vital Signs Date Time Temp Pulse Resp B/P (MAP) Pulse Ox O2 Delivery O2 Flow Rate FiO2 10/17/20 08:00 97.3 81 18 137/71 (93) 93 Room Air 10/15/20 07:44 2.0 I&O- Last 24 Hours up to 6 AM 10/17/20 06:00 Intake Total 1160 ml Output Total 925 ml Balance 235 ml GME ATTESTATION GME ATTESTATION My faculty preceptor for this patient encounter was physically present during the encounter and was fully available. All aspects of the patient interview, examination, medical decision making process, and medical care plan development were reviewed and approved by the faculty preceptor. The faculty preceptor is aw are and concurs with the plan as stated in the body of this note and will attest to such by his/her cosignature. ATTENDING NOTE Attending Attestation: Patient independently seen and examined. I have discussed in detail with the resident / student the findings and plan of treatment as documented by the resident / student. I agree with their findings and treatment plan and have edited their documentation. I will continue to follow the patient during this hospital stay. Mira APARICIO OMS-3 Oct 17, 2020 09:44 MANDIE NEWTON D.O. Oct 17, 2020 13:38 NICKI GIMNEEZ MD Oct 18, 2020 09:26
[2020-10-17] MEDS: DIGOXIN 0.125 MG TAB PO SCH (10:00)
[2020-10-17] MEDS: SENOKOT S TAB PO SCH ×2 (10:00→21:57)
[2020-10-17] MEDS: OMEPRAZOLE 20 MG CAP PO SCH (10:00)
--- NOTE | 2020-10-17 10:04 | REP ---
INDICATION: liver protocol. COMPARISON: Comparison CT study October 16, 2020 and May 13, 2013.. TECHNIQUE: Postcontrast imaging could not be performed due to inability to establish intravenous access. Noncontrast MRI study was acquired with axial and coronal T2 weighted sequences including spin echo, fast spin echo, diffusion, gradient echo, and in and out of phase imaging. FINDINGS: T2 weighted scans demonstrate that there are several tiny scattered hepatic cysts. The largest of these are in the posterior aspect of the right lobe measuring 0.8 cm. Most of these are quite tiny 1-2 mm. In addition however, T2 weighted scans demonstrate 3 ill-defined hepatic mass lesions. The largest of these is in the left lobe superiorly near the dome of the diaphragm measuring 3.4 x 3.0 cm. The smallest lesion is in the right lobe centrally measuring 1.3 cm in greatest diameter. There is a 3rd lesion in the posterior aspect of the right lobe of the liver measuring 2.6 x 2.3 by 2.8 cm. Diffusion-weighted scans demonstrate restricted diffusion in these 3 liver mass lesions. They showed ill-defined T2 hyperintensity and T1 hypointensity and are most consistent with liver metastases. There is no discernible pancreatic mass lesion seen. No adrenal mass is observed on either side. No retroperitoneal or upper abdominal adenopathy is seen. The patient is status post splenectomy but there is residual and or recurrence splenic tissue in the left upper quadrant. There are parapelvic cysts in the left kidney and a cortical cyst is seen laterally in the left kidney measuring 2.8 cm in greatest diameter. These appear to be benign simple cysts. There is a sliver of ascitic fluid adjacent to the liver. There is a small quantity bilateral pleural fluid. IMPRESSION: There are 3 liver mass lesions noted as above suspicious for liver metastatic disease. Consider histologic sampling with ultrasound or CT guided needle biopsy. <Electronically signed by Major Licona > 10/17/20 1000
[2020-10-17] MEDS: DOCUSATE SODIUM 100MG CAPSULE PO SCH ×2 (10:35→21:57)
[2020-10-17] MEDS: predniSONE 20 MG TAB PO SCH (10:35)
[2020-10-17] MEDS: guaiFENesin ER 600 MG TAB PO SCH ×2 (10:35→21:57)
[2020-10-17] MEDS: AUGMENTIN 875 MG TAB PO SCH ×2 (10:35→21:57)
[2020-10-17] MEDS: MIDODRINE 5 MG TAB PO SCH ×3 (10:43→17:33)
[2020-10-17] MEDS: TAMSULOSIN 0.4 MG CAP PO SCH (10:43)
[2020-10-17 11:26] VITALS: BP 139/76
[2020-10-17] MEDS ORDERED: ENOXAPARIN 80MG/0.8ML SYRINGE (J1650 PER 10MG) SC ONE ×2 (14:00→23:00)
[2020-10-17 16:00] VITALS: BP 109/56
[2020-10-17 17:15] LABS: HEMATOCRIT 31.7 % (42.0-52.0); HEMOGLOBIN 9.5 g/dl (13.5-17.5)
[2020-10-17 19:56] VITALS: BP 112/60
[2020-10-17] MEDS: LATANOPROST 0.005% OPHTH SOLN 2.5 ML OU SCH (21:59)
[2020-10-17 22:17] LABS: HEMATOCRIT 32.8 % (42.0-52.0); HEMOGLOBIN 9.7 g/dl (13.5-17.5)
[2020-10-18] VITALS: BP 117/64
[2020-10-18] MEDS: METOPROLOL TART 25 MG TABLET PO SCH ×4 (00:38→18:33)
[2020-10-18] MEDS: COMBIVENT RESPIMAT 100-20MCG INHALER 4GM INH SCH ×4 (02:35→19:56)
[2020-10-18 04:00] VITALS: BP 130/80
[2020-10-18] MEDS: SLF 3 ML SYR IV SCH ×3 (05:16→20:14)
[2020-10-18 05:51] LABS: BASO % 0.2 % (0.0-1.0); HEMOGLOBIN 9.1 g/dl (13.5-17.5); LYMPH # 3.3 10^3/uL (1.5-5.0); LYMPH % 17.3 % (24.0-44.0); MEAN CORPUSCULAR HEMOGLOBIN 23.2 pg (27.0-33.0); MEAN CORPUSCULAR HGB CONC 29.4 g/dl (32.0-36.5); MEAN CORPUSCULAR VOLUME 78.9 fl (80.0-96.0); MONO # 1.1 10^3/uL (0.0-0.8); MONO % 5.8 % (2.0-8.0); NEUTROPHILS # 14.1 10^3/uL (1.5-8.5); PLATELET COUNT, AUTOMATED 599 10^3/uL (150-450); RED BLOOD COUNT 3.93 10^6/uL (4.30-6.10); WHITE BLOOD COUNT 18.8 10^3/uL (4.0-10.0)
[2020-10-18 06:14] LABS: BLOOD UREA NITROGEN 26 MG/DL (7-18); CALCIUM LEVEL 8.1 MG/DL (8.8-10.2); CARBON DIOXIDE LEVEL 31 MEQ/L (21-32); CHLORIDE LEVEL 111 MEQ/L (98-107); CREATININE FOR GFR 0.64 MG/DL (0.70-1.30); GLOMERULAR FILTRATION RATE > 60.0 (>35); GLUCOSE, FASTING 104 MG/DL (70-100); MAGNESIUM LEVEL 2.2 MG/DL (1.8-2.4); POTASSIUM SERUM 4.2 MEQ/L (3.5-5.1); SODIUM LEVEL 146 MEQ/L (136-145)
[2020-10-18] MEDS: SYMBICORT 160/4.5MCG INHALER 6GM INH SCH ×2 (07:35→19:57)
[2020-10-18 08:00] VITALS: BP 132/80
[2020-10-18] MEDS: TAMSULOSIN 0.4 MG CAP PO SCH (08:35)
[2020-10-18] MEDS: OMEPRAZOLE 20 MG CAP PO SCH (08:35)
[2020-10-18] MEDS: guaiFENesin ER 600 MG TAB PO SCH ×2 (08:35→20:12)
[2020-10-18] MEDS: predniSONE 10 MG TAB PO SCH (08:36)
[2020-10-18] MEDS: MIDODRINE 5 MG TAB PO SCH ×3 (08:37→16:16)
[2020-10-18] MEDS: AUGMENTIN 875 MG TAB PO SCH ×2 (08:37→20:13)
[2020-10-18] MEDS: DIGOXIN 0.125 MG TAB PO SCH (08:37)
[2020-10-18] MEDS ORDERED: ENOXAPARIN 80MG/0.8ML SYRINGE (J1650 PER 10MG) SC SCH (09:00)
--- NOTE | 2020-10-18 09:49 | IPNPDOC ---
Text Note Date of Service The patient was seen on 10/18/20. NOTE Subjective: No acute events overnight. Pt was somewhat agitated this morning after being moved to a different room. Pt had an episode of incontinence BM this morning and no gross blood was appreciated and stool was not dark in coloration. Pt states that he is usually able to go to the bathroom himself without difficulty but has had weakness since his previous admission at another facility. Pt states that he has hx of hematochezia during a prior admission at a different facility but that has since resolved. Pt was switched to Lovenox yesterday but had an episode of maroon colored stools so Lovenox was discontinued. When asked about his living situation, pt reports that he lives at home with his . Objective: VITALS: See below. GENERAL: Pt is sitting in bed and appears agitated. No acute distress. HEENT: NC/AT. EOMI. Conjunctiva and lids normal. CARDIOVASCULAR: Irregularly, irregular. Nl S1/S2. No murmurs, rubs, or gallops appreciated. PULMONARY: Rhonchi appreciated b/l. No wheezing or rales. Good air movement otherwise. ABD: Abd soft and non-tender to palpation. Normoactive bowel sounds in all four quadrants. EXTREMITIES: No edema appreciated. 2+ DP pulses. NEURO: No gross neurological deficits appreciated. Imaging: CXR 10/13: 1. Possible left basilar pneumonia. 2. Hyperinflation and chronic lung changes. Duplex US LE 10/13: There is no deep vein thrombus in the right or left lower extremities. Duplex US UE 10/13: The left cephalic vein was not seen. Otherwise negative bilateral upper extremity venous ultrasound. No evidence of deep venous thrombosis.. CTA Chest 10/14: No CT evidence of pulmonary embolus. CHF pattern. Small bilateral pleural effusions. Bilateral lower lobe compressive atelectasis and upper lobe fibrosis. No definite focal infiltrate CT Abd/Pelvis w/ Contrast 10/16: Limited study secondary to motion artifact. Liver lesions concerning for metastatic disease as described above, further evaluation with contrast enhanced MRI examination is recommended. Moderate fecal loading in the rectum. Diverticulosis without any CT evidence of diverticulitis. Fluid in nondistended colon may represent mild colitis. No small bowel dilatation or obstruction. Abd MRI 10/17: There are 3 liver mass lesions noted as above suspicious for metastatic disease. Consider histologic sampling with US or CT guided needle biopsy. Assessment/Plan: Patient is an 89-year-old male with a PMhx of HTN, Diastolic CHF, Chronic hypoxic respiratory failure 2/2 COPD, Hx of COVID-19 infection who pr esented to the ER at [facility] with complaints of shortness of breath and palpitations. He was found to be in A. fib with RVR was transferred to [facility] emergency room. He had reported that he was experiencing a productive cough and fevers at home. Upon arrival to emergency room, patient was febrile. He was admitted to the hospital service for further evaluation and treatment. #SOB/cough - Likely 2/2 PNA vs atrial fibrillation - Pt has been afebrile and hemodynamically stable. - CXR shows possible L basilar pneumonia. - Lactic acid elevated on initial presentation but has since been WNL. Blood cultures have been negative. MRSA screen negative. Sputum culture shows many gram-positive cocci pairs, chains and clusters, many gram-negative rods - PCT elevated at 1.05 but repeat shows down trend at 0.62 on 10/14/20. - Continue Augmentin day #5 of 7 day course - Continue incentive spirometer and acapella. #Atrial fibrillation with RVR - Pt is asymptomatic and reports no chest pain or palpitations. Troponins have been negative x3. - HR is has improved and is ranging from 68-100. - Echo shows aortic valve sclerosis with mild aortic stenosis and mild aortic regurgitation, mitral annular calcification with mild mitral regurgitation, moderate tricuspid regurgitation with mild pulmonary hypertension, R heart chambers dilated, features of elevated central venous pressure, systolic ejection fraction 60-65%. - Will continue Digoxin 0.125 mg PO daily and Metoprolol 25 mg PO Q6H. - Cardizem 30 mg PO Q6H. - Will hold Eliquis as pt is scheduled for liver lesion biopsy tomorrow. Lovenox was discontinued due to an episode of maroon colored stools yesterday. Will continue Eliquis once pt has liver biopsy done. #Liver lesions - CT abd/pelvis with contrast showed liver lesions concerning of metastatic disease. Lesions in the liver, largest one is in the R lobe measuring 23.2 x 24.5 mm, another one is more interiorly in the R lobe of the liver measuring 14 mm. Few other small lesions are also seen. MRI was recommended. MRI showed 3 liver mass lesions noted as above suspicious for liver metastatic disease. Consider histologic sampling with US or CT guided needle biopsy. - Pt reports no hx of any cancers. Origin of possible mets unknown at this time. - Discussed with Dr. Dugan about pt. Will have pt follow up outpatient. - Pt scheduled to have liver mass biopsy done through IR tomorrow. Will hold Eliquis. #Hx of COVID-19 - As per documentation, patient was noted to be positive on 09/29, however, review of healthy connections shows negative test - Discussed with [facility]; first COVID19 positive test was on 07/29/2020 and then 09/06; but was negative on 09/29, positive on 10/12 - First COVID19 positive on 07/29/2020 - Continue Prednisone, taper by 10 mg every 2 days - Continue supportive care #Leukocytosis - Patient has a long-standing history of leukocytosis. Patient was referred to an oncologist recently for evaluation on 10/06; Possible workup for JAK2 BCR ABL - Peripheral smear resulted with microcytic hypochromic anemia with moderate anisopoikilocytosis, leukocytosis with predominantly mature neutrophils, adequate morphologically unremarkable platelets, no atypical lymphocytes or faheem ts identified. - Will have pt f/u with oncology #Thrombocytosis - Likely 2/2 reactive etiology vs iron deficiency. - Will continue to follow with CBC's. #COPD - Chronic for pt as he has a hx of COPD. - Continue Proventil PRN and Albuterol. - Continue Symbicort RBID. #Chronic hypotension - Orthostatic vitals positive - Continue Midodrine at adjusted dose #Normocytic anemia - Hemoglobin has improved and remained stable after transfusions - No dark bowel movement noted recently, occult stool pending - s/p 2 units PRBC - Will continue to monitor CBC's. #Lactic acidosis - Resolved. - Lactic acid was 2.2 at time of admission. Most recent lactic acid on 10/14 was 1.5. #Anxiety - Xanax PRN. DVT Prophylaxis: Teds and sequentials. Holding anticoagulation due to scheduled IR procedure for liver biopsy. Will continue Eliquis after. Disposition: Pending clinical improvement. Pt is scheduled for liver biopsy tomorrow. VS,Fishbone, I+O VS, Fishbone, I+O Laboratory Tests 10/17/20 16:51 10/17/20 22:06 10/18/20 05:38 Vital Signs Date Time Temp Pulse Resp B/P (MAP) Pulse Ox O2 Delivery O2 Flow Rate FiO2 10/18/20 08:37 107 10/18/20 08:00 96.0 33 132/80 (97) 96 Room Air 10/15/20 07:44 2.0 I&O- Last 24 Hours up to 6 AM 10/18/20 06:00 Intake Total 700 ml Output Total 550 ml Balance 150 ml GME ATTESTATION GME ATTESTATION My faculty preceptor for this patient encounter was physically present during the encounter and was fully available. All aspects of the patient interview, exa mination, medical decision making process, and medical care plan development were reviewed and approved by the faculty preceptor. The faculty preceptor is aware and concurs with the plan as stated in the body of this note and will attest to such by his/her cosignature. ATTENDING NOTE Attending Attestation: Patient independently seen and examined. I have discussed in detail with the resident / student the findings and plan of treatment as documented by the resident / student. I agree with their findings and treatment plan and have edited their documentation. I will continue to follow the patient during this hospital stay. Mira APARICIO OMS-3 Oct 18, 2020 09:49 MANDIE NEWTON D.O. Oct 18, 2020 12:29 NICKI GIMENEZ MD Oct 20, 2020 07:13
[2020-10-18 11:04] LABS: HEMATOCRIT 33.4 % (42.0-52.0); HEMOGLOBIN 9.8 g/dl (13.5-17.5)
[2020-10-18 12:00] VITALS: BP 138/73
[2020-10-18 16:00] VITALS: BP 133/78
[2020-10-18 20:00] VITALS: BP 123/81
[2020-10-18] MEDS: LATANOPROST 0.005% OPHTH SOLN 2.5 ML OU SCH (20:12)
[2020-10-19] VITALS (9 sets, daily range): BP systolic 99–135; BP diastolic 57–84
[2020-10-19] MEDS: METOPROLOL TART 25 MG TABLET PO SCH ×4 (00:31→18:16)
[2020-10-19] MEDS: COMBIVENT RESPIMAT 100-20MCG INHALER 4GM INH SCH ×4 (02:00→20:25)
[2020-10-19] MEDS: SLF 3 ML SYR IV SCH ×3 (05:29→21:32)
[2020-10-19 06:05] LABS: BASO # 0.1 10^3/uL (0.0-0.2); BASO % 0.2 % (0.0-1.0); HEMATOCRIT 29.9 % (42.0-52.0); HEMOGLOBIN 8.7 g/dl (13.5-17.5); LYMPH # 4.2 10^3/uL (1.5-5.0); LYMPH % 17.4 % (24.0-44.0); MEAN CORPUSCULAR HGB CONC 29.1 g/dl (32.0-36.5); MEAN CORPUSCULAR VOLUME 79.1 fl (80.0-96.0); MONO % 6.7 % (2.0-8.0); NEUTROPHILS # 17.9 10^3/uL (1.5-8.5); PLATELET COUNT, AUTOMATED 550 10^3/uL (150-450); RED BLOOD COUNT 3.78 10^6/uL (4.30-6.10)
[2020-10-19 06:30] LABS: BLOOD UREA NITROGEN 27 MG/DL (7-18); CALCIUM LEVEL 8.1 MG/DL (8.8-10.2); CARBON DIOXIDE LEVEL 30 MEQ/L (21-32); CHLORIDE LEVEL 107 MEQ/L (98-107); CREATININE FOR GFR 0.63 MG/DL (0.70-1.30); GLOMERULAR FILTRATION RATE > 60.0 (>35); GLUCOSE, FASTING 93 MG/DL (70-100); MAGNESIUM LEVEL 1.8 MG/DL (1.8-2.4); POTASSIUM SERUM 3.6 MEQ/L (3.5-5.1); SODIUM LEVEL 142 MEQ/L (136-145)
[2020-10-19 06:50] LABS: WHITE BLOOD COUNT 24.2 10^3/uL (4.0-10.0)
[2020-10-19 06:51] LABS: MONO # 1.6 10^3/uL (0.0-0.8)
[2020-10-19] MEDS: SYMBICORT 160/4.5MCG INHALER 6GM INH SCH ×2 (07:19→20:25)
[2020-10-19] MEDS: OMEPRAZOLE 20 MG CAP PO SCH (08:32)
[2020-10-19] MEDS: predniSONE 10 MG TAB PO SCH (08:32)
[2020-10-19] MEDS: AUGMENTIN 875 MG TAB PO SCH ×2 (08:32→21:29)
[2020-10-19] MEDS: MIDODRINE 5 MG TAB PO SCH ×3 (08:33→16:16)
[2020-10-19] MEDS: guaiFENesin ER 600 MG TAB PO SCH ×2 (08:33→21:29)
[2020-10-19] MEDS: DIGOXIN 0.125 MG TAB PO SCH (08:33)
[2020-10-19] MEDS: TAMSULOSIN 0.4 MG CAP PO SCH (08:33)
--- NOTE | 2020-10-19 09:59 | IPNPDOC ---
Text Note Date of Service The patient was seen on 10/19/20. NOTE SUBJECTIVE: Pt was seen an examined this morning at bedside. He expresses frustration that his legs are weak and he is having difficulty especially when he needs to get up to use the toilet. He denies any shortness of breath but notices it does come back on when he is asked to do things too quickly. OBJECTIVE: VITAL SIGNS: See below GENERAL: Alert, comfortable, in no acute distress HEENT: Normocephalic, atraumatic, sclera anicteric, moist mucous membranes CARDIOVASCULAR: Irregularly irregular rhythm with normal rate, normal S1 and S2. No murmurs, rubs, or gallops appreciated. RESPIRATORY: Rhonchi appreciated bilaterally which clears with cough. No wheezing or rales. ABDOMEN: Soft, nontender, nondistended, bowel sounds present. EXTREMITIES: No cyanosis or edema. Pulses 2+/4 in bilateral upper and lower extremities NEUROLOGIC: No focal deficits appreciated IMAGING: CXR 10/13: 1. Possible left basilar pneumonia. 2. Hyperinflation and chronic lung changes. Duplex US LE 10/13: There is no deep vein thrombus in the right or left lower extremities. Duplex US UE 10/13: The left cephalic vein was not seen. Otherwise negative bilateral upper extremity venous ultrasound. No evidence of deep venous thrombosis.. CTA Chest 10/14: No CT evidence of pulmonary embolus. CHF pattern. Small bilateral pleural effus ions. Bilateral lower lobe compressive atelectasis and upper lobe fibrosis. No definite focal infiltrate CT Abd/Pelvis w/ Contrast 10/16: Limited study secondary to motion artifact. Liver lesions concerning for metastatic disease as described above, further evaluation with contrast enhanced MRI examination is recommended. Moderate fecal loading in the rectum. Diverticulosis without any CT evidence of diverticulitis. Fluid in nondistended colon may represent mild colitis. No small bowel dilatation or obstruction. Abd MRI 10/17: There are 3 liver mass lesions noted as above suspicious for metastatic disease. Consider histologic sampling with US or CT guided needle biopsy. ASSESSMENT/PLAN: Patient is an 89-year-old male with a PMhx of HTN, Diastolic CHF, Chronic hypoxic respiratory failure 2/2 COPD, Hx of COVID-19 infection who presented to the ER at [facility] with complaints of shortness of breath and palpitations. He was found to be in A. fib with RVR was transferred to [facility] emergency room. He had reported that he was experiencing a productive cough and fevers at home. Upon arrival to emergency room, patient was febrile. He was admitted to the hospital service for further evaluation and treatment. #SOB/cough - Likely 2/2 PNA vs atrial fibrillation - Pt has been afebrile and hemodynamically stable. - CXR shows possible L basilar pneumonia. - Lactic acid elevated on initial presentation but has since been WNL. Blood cultures have been negative. MRSA screen negative. Sputum culture shows many gram-positive cocci pairs, chains and clusters, many gram-negative rods - PCT elevated at 1.05 but repeat shows down trend at 0.62 on 10/14/20. - Continue Augmentin day #6 of 7 day course - Continue incentive spirometer and acapella. #Atrial fibrillation with RVR - Pt is asymptomatic and reports no chest pain or palpitations. Troponins have b een negative x3. - HR is has improved and is ranging from 68-100. - Echo shows aortic valve sclerosis with mild aortic stenosis and mild aortic regurgitation, mitral annular calcification with mild mitral regurgitation, moderate tricuspid regurgitation with mild pulmonary hypertension, R heart charlotte mbers dilated, features of elevated central venous pressure, systolic ejection fraction 60-65%. - Will continue Digoxin 0.125 mg PO daily, Metoprolol 25 mg PO Q6H, Cardizem 30 mg PO Q6H. - Hold Eliquis as pt is scheduled for liver lesion biopsy. Lovenox was discontinued due to an episode of maroon colored stools yesterday. Plan to restart Eliquis once pt has liver biopsy done. #Liver lesions - MRI showed 3 liver mass lesions noted as above suspicious for liver metastatic disease. - Pt reports no hx of any cancers. Origin of possible mets unknown at this time. - Discussed with Dr. Dugan, recommended follow up outpatient. - Pt scheduled to have liver mass biopsy done through IR today #Hx of COVID-19 - As per documentation, patient was noted to be positive on 09/29, however, review of healthy connections shows negative test - Discussed with [facility]; first COVID19 positive test was on 07/29/2020 and then 09/06; but was negative on 09/29, positive on 10/12 - First COVID19 positive on 07/29/2020 - Continue Prednisone, taper by 10 mg every 2 days - Continue supportive care #Leukocytosis - Patient has a long-standing history of leukocytosis. Patient was referred to an oncologist recently for evaluation on 10/06; Possible workup for JAK2 BCR ABL - Peripheral smear resulted with microcytic hypochromic anemia with moderate anisopoikilocytosis, leukocytosis with predominantly mature neutrophils, adequate morphologically unremarkable platelets, no atypical lymphocytes or blasts identified. - Will have pt f/u with oncology outpatient #Thrombocytosis - Likely 2/2 reactive etiology vs iron deficiency. - f/u CBC daily #COPD - Chronic for pt as he has a hx of COPD. - Continue Proventil PRN and Albuterol. - Continue Symbicort RBID. #Chronic hypotension - Orthostatic vitals positive - Continue Midodrine at adjusted dose #Normocytic anemia - s/p 2 units PRBC, H/H has improved and remained stable after transfusions - Occult stool positive, may need GI workup outpatient for occult bleeding - monitor CBC daily #Lactic acidosis - Resolved. - Lactic acid was 2.2 at time of admission. Most recent lactic acid on 10/14 was 1.5. #Anxiety - Xanax PRN. DVT Prophylaxis: Teds and sequentials. Holding anticoagulation due to scheduled IR procedure for liver biopsy. Will continue Eliquis after. Disposition: pt will likely require rehab on discharge Attending Attestation: Patient independently seen and examined. I have discussed in detail with the resident / student the findings and plan of treatment as documented by the resident / student. I agree with their findings and treatment plan and have edited their documentation. I will continue to follow the patient during this hospital stay. VS,[place], I+O VS, Fishbone, I+O Laboratory Tests 10/18/20 10:40 10/19/20 05:24 Vital Signs Date Time Temp Pulse Resp B/P (MAP) Pulse Ox O2 Delivery O2 Flow Rate FiO2 10/19/20 08:33 81 10/19/20 08:00 97.9 22 123/60 (81) 92 Room Air 10/15/20 07:44 2.0 I&O- Last 24 Hours up to 6 AM 10/19/20 06:00 Intake Total 760 ml Output Total 850 ml Balance -90 ml MANDIE NEWTON DPerlaOPerla Oct 19, 2020 09:59 NICKI GIMENEZ MD Oct 20, 2020 07:15
[2020-10-19] MEDS ORDERED: SODIUM BICARBONATE 8.4% INJ 50MEQ 50 ML VIAL As Ordered ONE (13:21)
[2020-10-19] MEDS ORDERED: LIDOCAINE 1% MDV 20ML VIAL As Ordered ONE (13:21)
--- NOTE | 2020-10-19 17:35 | REP ---
INDICATION: liver mass biopsy, last eliquis dose 10/16 at 20:17. COMPARISON: None. TECHNIQUE: The procedure was performed by HAILEY Smith, under the direct supervision of Dr. Gorman. The risks and benefits of the procedure were explained to the patient and an informed consent was obtained both verbally and written. Directly prior to the start of the procedure a formal time-out was completed in the procedure room. FINDINGS: Using ultrasound guidance the right lobe liver mass was localized. The skin was prepped and draped in a sterile fashion. 10 mL of buffered lidocaine was used as a local anesthetic. Using ultrasound guidance a 17/18 gauge coaxial needle biopsy system was inserted and advanced into the right lobe liver mass. Five core biopsy specimens were obtained and sent to pathology for further analysis. The patient tolerated the procedure well and there were no immediate complications. After the appropriate amount of monitored convalescence the patient was discharged from the department. IMPRESSION: 1. Ultrasound-guided right lobe liver mass biopsy. <Electronically signed by Parul Charles > 10/19/20 1535 <Electronically signed by Americo Gorman > 10/19/20 0253
[2020-10-20] MEDS: LATANOPROST 0.005% OPHTH SOLN 2.5 ML OU SCH ×2 (00:27→19:56)
[2020-10-20] MEDS: METOPROLOL TART 25 MG TABLET PO SCH ×4 (00:28→18:51)
[2020-10-20] MEDS: COMBIVENT RESPIMAT 100-20MCG INHALER 4GM INH SCH ×4 (02:00→20:44)
[2020-10-20] MEDS: SLF 3 ML SYR IV SCH ×3 (05:53→23:25)
[2020-10-20 06:00] VITALS: BP 107/63
[2020-10-20 06:40] LABS: BASO % 0.2 % (0.0-1.0); HEMATOCRIT 29.5 % (42.0-52.0); HEMOGLOBIN 8.7 g/dl (13.5-17.5); LYMPH % 13.5 % (24.0-44.0); MEAN CORPUSCULAR HGB CONC 29.5 g/dl (32.0-36.5); MONO # 1.6 10^3/uL (0.0-0.8); MONO % 7.1 % (2.0-8.0); NEUTROPHILS # 17.2 10^3/uL (1.5-8.5); NEUTROPHILS % 77.2 % (36.0-66.0); PLATELET COUNT, AUTOMATED 556 10^3/uL (150-450); RED BLOOD COUNT 3.78 10^6/uL (4.30-6.10)
[2020-10-20 06:44] LABS: WHITE BLOOD COUNT 22.2 10^3/uL (4.0-10.0)
[2020-10-20 07:03] LABS: BLOOD UREA NITROGEN 22 MG/DL (7-18); CARBON DIOXIDE LEVEL 32 MEQ/L (21-32); CHLORIDE LEVEL 106 MEQ/L (98-107); CREATININE FOR GFR 0.62 MG/DL (0.70-1.30); GLOMERULAR FILTRATION RATE > 60.0 (>35); GLUCOSE, FASTING 104 MG/DL (70-100); MAGNESIUM LEVEL 1.9 MG/DL (1.8-2.4); POTASSIUM SERUM 4.6 MEQ/L (3.5-5.1); SODIUM LEVEL 143 MEQ/L (136-145)
[2020-10-20] MEDS: SYMBICORT 160/4.5MCG INHALER 6GM INH SCH ×2 (07:16→20:44)
[2020-10-20] MEDS: OMEPRAZOLE 20 MG CAP PO SCH (08:53)
[2020-10-20] MEDS: MIDODRINE 5 MG TAB PO SCH ×3 (08:54→16:09)
[2020-10-20] MEDS: predniSONE 20 MG TAB PO SCH (08:54)
[2020-10-20] MEDS: AUGMENTIN 875 MG TAB PO SCH ×2 (08:54→19:56)
[2020-10-20] MEDS: DIGOXIN 0.125 MG TAB PO SCH (08:54)
[2020-10-20] MEDS: guaiFENesin ER 600 MG TAB PO SCH ×2 (08:55→19:56)
[2020-10-20] MEDS: TAMSULOSIN 0.4 MG CAP PO SCH (08:55)
[2020-10-20] MEDS: NYSTATIN 500,000 U/5 ML SUSP UDC SS SCH ×2 (12:19→18:50)
[2020-10-20] MEDS: APIXABAN 5 MG TAB (ELIQUIS) PO SCH ×2 (12:19→19:56)
[2020-10-20 14:00] VITALS: BP 101/63
--- NOTE | 2020-10-20 15:28 | IPNPDOC ---
Text Note Date of Service The patient was seen on 10/20/20. NOTE SUBJECTIVE: Pt was seen an examined this morning at bedside. He states he was able to get up and use the walker with PT. He states he would like to go to rehab to work on his strength. He continues to have some shortness of breath with exertion. Denies any chest pain. OBJECTIVE: VITAL SIGNS: See below GENERAL: Alert, comfortable, in no acute distress HEENT: Normocephalic, atraumatic, sclera anicteric, moist mucous membranes CARDIOVASCULAR: Irregularly irregular rhythm with normal rate, normal S1 and S2. No murmurs, rubs, or gallops appreciated. RESPIRATORY: Rhonchi appreciated bilaterally which clears with cough. No wheezing or rales. ABDOMEN: Soft, nontender, nondistended, bowel sounds present. EXTREMITIES: No cyanosis or edema. Pulses 2+/4 in bilateral upper and lower extremities NEUROLOGIC: No focal deficits appreciated IMAGING: CXR 10/13: 1. Possible left basilar pneumonia. 2. Hyperinflation and chronic lung changes. Duplex US LE 10/13: There is no deep vein thrombus in the right or left lower extremities. Duplex US UE 10/13: The left cephalic vein was not seen. Otherwise negative bilateral upper extremity venous ultrasound. No evidence of deep venous thrombosis.. CTA Chest 10/14: No CT evidence of pulmonary embolus. CHF pattern. Small bilateral pleural effusions. Bilateral lower lobe compressive atelectasis and upper lobe fibrosis. No definite focal infiltrate CT Abd/Pelvis w/ Contrast 10/16: Limited study secondary to motion artifact. Liver lesions concerning for metastatic disease as described above, further evaluation with contrast enhanced MRI examination is recommended. Moderate fecal loading in the rectum. Diverticulosis without any CT evidence of diverticulitis. Fluid in nondistended colon may represent mild colitis. No small bowel dilatation or obstruction. Abd MRI 10/17: There are 3 liver mass lesions noted as above suspicious for metastatic disease. Consider histologic sampling with US or CT guided needle biopsy. 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 He was found to be in A. fib with RVR was transferred to [facility] emergency room. He had reported that he was experiencing a productive cough and fevers at home. Upon arrival to emergency room, patient was febrile. He was admitted to the hospital service for further evaluation and treatment. #SOB/cough - Likely 2/2 PNA vs atrial fibrillation - Pt has been afebrile and hemodynamically stable. - CXR shows possible L basilar pneumonia. - Lactic acid elevated on initial presentation but has since been WNL. Blood cultures have been negative. MRSA screen negative. Sputum culture shows many gram-positive cocci pairs, chains and clusters, many gram-negative rods - PCT elevated at 1.05 but repeat shows down trend at 0.62 on 10/14/20. - Continue Augmentin day #7 of 7 day course - Continue incentive spirometer and acapella. #Atrial fibrillation with RVR - Pt is asymptomatic and reports no chest pain or palpitations. Troponins have been negative x3. - HR is has improved and is ranging from 68-100. - Echo shows aortic valve sclerosis with mild aortic stenosis and mild aortic regurgitation, mitral annular calcification with mild mitral regurgitation, moderate tricuspid regurgitation with mild pulmonary hypertension, R heart chambers dilated, features of elevated central venous pressure, systolic ejection fraction 60-65%. - Will continue Digoxin 0.125 mg PO daily, Metoprolol 25 mg PO Q6H, Cardizem 30 mg PO Q6H. - Restart eliquis today #Liver lesions - MRI showed 3 liver mass lesions noted as above suspicious for liver metastatic disease. - Pt reports no hx of any cancers. Origin of possible mets unknown at this time. - Discussed with Dr. Dugan, recommended follow up outpatient. - Liver mass biopsy complete, results pending. #Hx of COVID-19 - As per documentation, patient was noted to be positive on 09/29, however, review of healthy connections shows negative test - Discussed with [facility]; first COVID19 positive test was on 07/29/2020 and then 09/06; but was negative on 09/29, positive on 10/12 - First COVID19 positive on 07/29/2020 - Continue Prednisone, taper by 10 mg every 2 days - Continue supportive care #Leukocytosis - Patient has a long-standing history of leukocytosis. Patient was referred to a n oncologist recently for evaluation on 10/06; Possible workup for JAK2 BCR ABL - Peripheral smear resulted with microcytic hypochromic anemia with moderate anisopoikilocytosis, leukocytosis with predominantly mature neutrophils, adequate morphologically unremarkable platelets, no atypical lymphocytes or blasts identified. - Will have pt f/u with oncology outpatient #Thrombocytosis - Likely 2/2 reactive etiology vs iron deficiency. - f/u CBC daily #COPD - Chronic for pt as he has a hx of COPD. - Continue Proventil PRN and Albuterol. - Continue Symbicort RBID. #Chronic hypotension - Orthostatic vitals positive - Continue Midodrine at adjusted dose #Normocytic anemia - s/p 2 units PRBC, H/H has improved and remained stable after transfusions - Occult stool positive, may need GI workup outpatient for occult bleeding - monitor CBC daily #Lactic acidosis - Resolved. - Lactic acid was 2.2 at time of admission. Most recent lactic acid on 10/14 was 1.5. #Anxiety - Xanax PRN. DVT Prophylaxis: pt has been restarted on home eliquis today for full anticoa gulation Disposition: ARU screen vs pending placement for rehab Attending Attestation: Patient independently seen and examined. I have discussed in detail with the resident / student the findings and plan of treatment as documented by the resident / student. I agree with their findings and treatment plan and have edited their documentation. I will continue to follow the patient during this hospital stay. VS,Fishbone, I+O VS, Fishbone, I+O Laboratory Tests 10/20/20 05:54 Vital Signs Date Time Temp Pulse Resp B/P (MAP) Pulse Ox O2 Delivery O2 Flow Rate FiO2 10/20/20 14:00 98.6 68 18 101/63 (76) 98 Nasal Cannula 2.0 I&O- Last 24 Hours up to 6 AM 10/20/20 06:00 Intake Total 465 ml Output Total 1725 ml Balance -1260 ml MANDIE NEWTON D.O. Oct 20, 2020 15:27 NICKI GIMENEZ MD Oct 22, 2020 11:48
[2020-10-20 20:20] VITALS: BP 110/84
[2020-10-21] MEDS: NYSTATIN 500,000 U/5 ML SUSP UDC SS SCH ×4 (00:17→18:17)
[2020-10-21] MEDS: COMBIVENT RESPIMAT 100-20MCG INHALER 4GM INH SCH ×4 (01:47→20:58)
[2020-10-21 05:37] VITALS: BP 107/61
[2020-10-21] MEDS: METOPROLOL TART 25 MG TABLET PO SCH ×4 (06:00→17:03)
[2020-10-21] MEDS: SLF 3 ML SYR IV SCH ×3 (06:11→21:36)
[2020-10-21] MEDS: SYMBICORT 160/4.5MCG INHALER 6GM INH SCH ×2 (07:14→20:58)
[2020-10-21] MEDS: APIXABAN 5 MG TAB (ELIQUIS) PO SCH ×2 (08:31→21:35)
[2020-10-21] MEDS: MIDODRINE 5 MG TAB PO SCH ×3 (08:31→17:03)
[2020-10-21] MEDS: predniSONE 20 MG TAB PO SCH (08:31)
[2020-10-21] MEDS: OMEPRAZOLE 20 MG CAP PO SCH (08:31)
[2020-10-21] MEDS: TAMSULOSIN 0.4 MG CAP PO SCH (08:31)
[2020-10-21] MEDS: DIGOXIN 0.125 MG TAB PO SCH (08:32)
[2020-10-21] MEDS: guaiFENesin ER 600 MG TAB PO SCH ×2 (08:32→21:35)
--- NOTE | 2020-10-21 11:43 | IPNPDOC ---
Text Note Date of Service The patient was seen on 10/21/20. NOTE SUBJECTIVE: Pt was seen an examined this morning at bedside. He states he is feeling well without any new concerns. I discussed with him the results of his liver biopsy and he understands the diagnosis as well as the plan for follow up and further testing. He expresses a desire to determine the source of his cancer but states he is not sure if he would like to undergo treatment. He would like a follow up with oncology after discharge to discuss this. OBJECTIVE: VITAL SIGNS: See below GENERAL: Alert, comfortable, in no acute distress HEENT: Normocephalic, atraumatic, sclera anicteric, moist mucous membranes CARDIOVASCULAR: Irregularly irregular rhythm with normal rate, normal S1 and S2. No murmurs, rubs, or gallops appreciated. RESPIRATORY: Rhonchi appreciated bilaterally which clears with cough. No wheezing or rales. ABDOMEN: Soft, nontender, nondistended, bowel sounds present. EXTREMITIES: No cyanosis or edema. Pulses 2+/4 in bilateral upper and lower extremities NEUROLOGIC: No focal deficits appreciated ASSESSMENT/PLAN: Patient is an 89-year-old male with a PMhx of HTN, Diastolic CHF, Chronic hypoxic respiratory failure 2/2 COPD, Hx of COVID-19 infection who presented to the ER at [facility] with complaints of shortness of breath and palpitations. He was found to be in A. fib with RVR was transferred to [facility] emergency room. He had reported that he was experiencing a productive cough and fevers at home. Upon arrival to emergency room, patient was febrile. He was admitted to the hospital service for further evaluation and treatment. #SOB/cough, improved - Likely 2/2 PNA vs atrial fibrillation - Pt has been afebrile and hemodynamically stable. - Lactic acid elevated on initial presentation but has since been WNL. Blood cultures have been negative. MRSA screen negative. Sputum culture shows many gram-positive cocci pairs, chains and clusters, many gram-negative rods - CXR shows possible L basilar pneumonia. PCT elevated at 1.05 but repeat shows down trend at 0.62 on 10/14/20. - Completed 7 day course of Augmentin for possible PNA - Continue incentive spirometer and acapella. Mucinex for cough. #Atrial fibrillation with RVR - Pt is asymptomatic and reports no chest pain or palpitations. Troponin negative x3. - HR is has improved and is ranging from 68-100. - Echo shows aortic valve sclerosis with mild aortic stenosis and mild aortic regurgitation, mitral annular calcification with mild mitral regurgitation, moderate tricuspid regurgitation with mild pulmonary hypertension, R heart chambers dilated, features of elevated central venous pressure, systolic ejection fraction 60-65%. - Will continue Digoxin 0.125 mg PO daily, Metoprolol 25 mg PO Q6H, Cardizem 30 mg PO Q6H. - Continue eliquis for anticoagulation. #Liver lesions - MRI showed 3 liver mass lesions noted as above suspicious for liver metastatic disease. - Pt reports no hx of any cancers. 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 - at this point, pt would like further work up to determine primary source but is unsure if he will pursue treatment - f/u outpatient with oncology and GI to discuss further work up and treatment. #Hx of COVID-19 - As per documentation, patient was noted to be positive on 09/29, however, review of healthy connections shows negative test - Discussed with [facility]; first COVID19 positive test was on 07/29/2020 and then 09/06; but was negative on 09/29, positive again on 10/12 - Continue Prednisone, taper by 10 mg every 2 days. Supportive care. #Leukocytosis - Patient has a long-standing history of leukocytosis. Patient was referred to an oncologist recently for evaluation on 10/06; Possible workup for JAK2 BCR ABL - Peripheral smear resulted with microcytic hypochromic anemia with moderate anisopoikilocytosis, leukocytosis with predominantly mature neutrophils, adequate morphologically unremarkable platelets, no atypical lymphocytes or b lasts identified. - Will have pt f/u with oncology outpatient #Thrombocytosis - Likely 2/2 reactive etiology vs iron deficiency. - f/u CBC daily #COPD - no evidence of acute exacerbation - Continue Proventil PRN and Albuterol. - Continue Symbicort RBID. #Chronic hypotension - Orthostatic vitals positive - Continue Midodrine at adjusted dose #Normocytic anemia - s/p 2 units PRBC, H/H has improved and remained stable after transfusions - Occult stool positive, may need GI workup outpatient for occult bleeding - monitor CBC daily #Lactic acidosis - Resolved. - Lactic acid was 2.2 at time of admission. Most recent lactic acid on 10/14 was 1.5. #Anxiety - Xanax PRN. DVT Prophylaxis: pt has been restarted on home eliquis today for full anticoagulation Disposition: ARU screen vs pending placement for rehab Attending Attestation: Patient independently seen and examined. I have discussed in detail with the resident / student the findings and plan of treatment as documented by the resident / student. I agree with their findings and treatment plan and have edited their documentation. I will continue to follow the patient during this hospital stay. VS,Fishbone, I+O VS, Fishbone, I+O Vital Signs Date Time Temp Pulse Resp B/P (MAP) Pulse Ox O2 Delivery O2 Flow Rate FiO2 10/21/20 09:45 2.0 10/21/20 08:32 88 10/21/20 06:00 107/61 10/21/20 05:37 98.6 18 97 Room Air I&O- Last 24 Hours up to 6 AM 10/21/20 06:00 Intake Total 900 ml Output Total 750 ml Balance 150 ml MANDIE NEWTON D.O. Oct 21, 2020 11:43 NICKI GIMENEZ MD Oct 22, 2020 11:57
[2020-10-21 12:15] LABS: BASO # 0.1 10^3/uL (0.0-0.2); BASO % 0.2 % (0.0-1.0); HEMATOCRIT 30.8 % (42.0-52.0); HEMOGLOBIN 9.2 g/dl (13.5-17.5); LYMPH % 7.9 % (24.0-44.0); MEAN CORPUSCULAR HEMOGLOBIN 23.7 pg (27.0-33.0); MEAN CORPUSCULAR HGB CONC 29.9 g/dl (32.0-36.5); MEAN CORPUSCULAR VOLUME 79.4 fl (80.0-96.0); MONO # 1.3 10^3/uL (0.0-0.8); MONO % 5.2 % (2.0-8.0); NEUTROPHILS # 20.6 10^3/uL (1.5-8.5); NEUTROPHILS % 83.3 % (36.0-66.0); PLATELET COUNT, AUTOMATED 600 10^3/uL (150-450); RED BLOOD COUNT 3.88 10^6/uL (4.30-6.10); WHITE BLOOD COUNT 24.7 10^3/uL (4.0-10.0)
[2020-10-21 12:43] LABS: ALBUMIN 2.6 GM/DL (3.2-5.2); ALT/SGPT 19 U/L (12-78); BILIRUBIN,TOTAL 0.3 MG/DL (0.2-1.0); BLOOD UREA NITROGEN 23 MG/DL (7-18); CALCIUM LEVEL 8.4 MG/DL (8.8-10.2); CARBON DIOXIDE LEVEL 34 MEQ/L (21-32); CHLORIDE LEVEL 100 MEQ/L (98-107); CREATININE FOR GFR 0.62 MG/DL (0.70-1.30); GLOMERULAR FILTRATION RATE > 60.0 (>35); GLUCOSE, FASTING 161 MG/DL (70-100); POTASSIUM SERUM 4.7 MEQ/L (3.5-5.1); SODIUM LEVEL 139 MEQ/L (136-145); TOTAL PROTEIN 5.4 GM/DL (6.4-8.2)
[2020-10-21] MEDS ORDERED: NYSTATIN 100,000 UNITS/GM TOPICAL PWD 15 GM TOP PRN (14:10)
[2020-10-21 14:22] VITALS: BP 119/74
[2020-10-21 20:47] VITALS: BP 115/66
[2020-10-21] MEDS: LATANOPROST 0.005% OPHTH SOLN 2.5 ML OU SCH (21:35)
[2020-10-22] MEDS: METOPROLOL TART 25 MG TABLET PO SCH ×4 (00:26→18:00)
[2020-10-22] MEDS: NYSTATIN 500,000 U/5 ML SUSP UDC SS SCH ×4 (00:26→18:03)
[2020-10-22] MEDS: COMBIVENT RESPIMAT 100-20MCG INHALER 4GM INH SCH ×4 (01:04→20:39)
[2020-10-22 05:06] VITALS: BP 112/70
[2020-10-22] MEDS: SLF 3 ML SYR IV SCH ×3 (05:53→21:38)
[2020-10-22 06:55] LABS: HEMATOCRIT 30.7 % (42.0-52.0); MEAN CORPUSCULAR HEMOGLOBIN 23.3 pg (27.0-33.0); MEAN CORPUSCULAR HGB CONC 29.3 g/dl (32.0-36.5); MEAN CORPUSCULAR VOLUME 79.3 fl (80.0-96.0); PLATELET COUNT, AUTOMATED 602 10^3/uL (150-450); RED BLOOD COUNT 3.87 10^6/uL (4.30-6.10)
[2020-10-22] MEDS: SYMBICORT 160/4.5MCG INHALER 6GM INH SCH ×2 (07:09→20:39)
[2020-10-22 07:14] LABS: ALBUMIN 2.4 GM/DL (3.2-5.2); ALT/SGPT 17 U/L (12-78); BILIRUBIN,TOTAL 0.3 MG/DL (0.2-1.0); BLOOD UREA NITROGEN 22 MG/DL (7-18); CALCIUM LEVEL 8.5 MG/DL (8.8-10.2); CARBON DIOXIDE LEVEL 34 MEQ/L (21-32); CHLORIDE LEVEL 99 MEQ/L (98-107); CREATININE FOR GFR 0.71 MG/DL (0.70-1.30); GLOMERULAR FILTRATION RATE > 60.0 (>35); GLUCOSE, FASTING 82 MG/DL (70-100); POTASSIUM SERUM 4.5 MEQ/L (3.5-5.1); SODIUM LEVEL 139 MEQ/L (136-145); TOTAL PROTEIN 5.2 GM/DL (6.4-8.2)
[2020-10-22 07:38] LABS: WHITE BLOOD COUNT 21.6 10^3/uL (4.0-10.0)
[2020-10-22 08:02] LABS: ATYPICAL LYMPH 6 % (0-5); LYMPHOCYTES 19 % (16-44); MONOCYTES 10 % (0-5); NEUTROPHILS 65 % (28-66)
[2020-10-22 08:07] LABS: OVALOCYTES 1+; SCHISTOCYTES 2+
[2020-10-22 08:09] LABS: MICROCYTOSIS 1+
[2020-10-22 08:11] LABS: PLATELET ESTIMATE INCREASED (NORMAL)
[2020-10-22] MEDS: MIDODRINE 5 MG TAB PO SCH ×3 (08:19→16:04)
[2020-10-22] MEDS: TAMSULOSIN 0.4 MG CAP PO SCH (08:19)
[2020-10-22] MEDS: OMEPRAZOLE 20 MG CAP PO SCH (08:20)
[2020-10-22] MEDS: APIXABAN 5 MG TAB (ELIQUIS) PO SCH ×2 (08:20→21:38)
[2020-10-22] MEDS: predniSONE 10 MG TAB PO SCH (08:20)
[2020-10-22] MEDS: guaiFENesin ER 600 MG TAB PO SCH ×2 (08:21→21:38)
[2020-10-22] MEDS: DIGOXIN 0.125 MG TAB PO SCH (08:21)
[2020-10-22 12:25] VITALS: BP 90/60
[2020-10-22 14:44] VITALS: BP 108/60
[2020-10-22 20:22] VITALS: BP 103/66
[2020-10-22] MEDS: ACETAMINOPHEN TAB 650MG DOSE (2X325MG) PO PRN (21:38)
[2020-10-22] MEDS: LATANOPROST 0.005% OPHTH SOLN 2.5 ML OU SCH (21:38)
[2020-10-23] VITALS: BP 104/56
[2020-10-23] MEDS: NYSTATIN 500,000 U/5 ML SUSP UDC SS SCH ×5 (00:19→23:39)
[2020-10-23] MEDS: METOPROLOL TART 25 MG TABLET PO SCH ×5 (00:19→23:42)
[2020-10-23] MEDS: COMBIVENT RESPIMAT 100-20MCG INHALER 4GM INH SCH ×3 (01:13→14:33)
[2020-10-23] MEDS: SLF 3 ML SYR IV SCH ×4 (05:27→23:40)
[2020-10-23 06:00] VITALS: BP 104/53
[2020-10-23 06:50] LABS: BASO # 0.1 10^3/uL (0.0-0.2); BASO % 0.5 % (0.0-1.0); EOS # 0.1 10^3/uL (0.0-0.5); EOS % 0.4 % (0.0-3.0); HEMOGLOBIN 8.9 g/dl (13.5-17.5); LYMPH # 5.3 10^3/uL (1.5-5.0); LYMPH % 27.7 % (24.0-44.0); MEAN CORPUSCULAR HEMOGLOBIN 23.4 pg (27.0-33.0); MEAN CORPUSCULAR HGB CONC 29.7 g/dl (32.0-36.5); MEAN CORPUSCULAR VOLUME 78.7 fl (80.0-96.0); MONO # 2.2 10^3/uL (0.0-0.8); MONO % 11.6 % (2.0-8.0); NEUTROPHILS # 10.8 10^3/uL (1.5-8.5); NEUTROPHILS % 56.3 % (36.0-66.0); PLATELET COUNT, AUTOMATED 598 10^3/uL (150-450); RED BLOOD COUNT 3.81 10^6/uL (4.30-6.10)
[2020-10-23 07:19] LABS: WHITE BLOOD COUNT 19.1 10^3/uL (4.0-10.0)
[2020-10-23 07:23] LABS: ALBUMIN 2.3 GM/DL (3.2-5.2); ALT/SGPT 16 U/L (12-78); BILIRUBIN,TOTAL 0.2 MG/DL (0.2-1.0); BLOOD UREA NITROGEN 25 MG/DL (7-18); CALCIUM LEVEL 8.4 MG/DL (8.8-10.2); CARBON DIOXIDE LEVEL 34 MEQ/L (21-32); CHLORIDE LEVEL 101 MEQ/L (98-107); CREATININE FOR GFR 0.52 MG/DL (0.70-1.30); GLOMERULAR FILTRATION RATE > 60.0 (>35); GLUCOSE, FASTING 81 MG/DL (70-100); POTASSIUM SERUM 4.2 MEQ/L (3.5-5.1); SODIUM LEVEL 140 MEQ/L (136-145); TOTAL PROTEIN 4.8 GM/DL (6.4-8.2)
[2020-10-23] MEDS: SYMBICORT 160/4.5MCG INHALER 6GM INH SCH ×2 (07:28→20:30)
[2020-10-23 08:08] VITALS: BP 110/70
[2020-10-23] MEDS: OMEPRAZOLE 20 MG CAP PO SCH (08:41)
[2020-10-23] MEDS: DIGOXIN 0.125 MG TAB PO SCH (08:41)
[2020-10-23] MEDS: MIDODRINE 5 MG TAB PO SCH ×3 (08:42→16:14)
[2020-10-23] MEDS: predniSONE 10 MG TAB PO SCH (08:42)
[2020-10-23] MEDS: TAMSULOSIN 0.4 MG CAP PO SCH (08:42)
[2020-10-23] MEDS: APIXABAN 5 MG TAB (ELIQUIS) PO SCH ×2 (08:43→21:35)
[2020-10-23] MEDS: guaiFENesin ER 600 MG TAB PO SCH ×2 (08:43→21:35)
[2020-10-23] MEDS ORDERED: SODIUM CHLORIDE 0.9% 1000ML IV ONE (12:35)
[2020-10-23] MEDS: ALPRAZolam 0.25 MG TAB PO PRN (12:53)
--- NOTE | 2020-10-23 14:08 | IPNPDOC ---
Text Note Date of Service The patient was seen on 10/22/20. NOTE Subjective: Pt was seen an examined this morning at bedside. He states he is feeling well without any new concerns. I discussed with him the results of his liver biopsy and he understands the diagnosis as well as the plan for follow up and further testing. He expresses a desire to determine the source of his cancer but states he is not sure if he would like to undergo treatment. He would like a follow up with oncology after discharge to discuss this. Objective: VITAL SIGNS: See below GENERAL: Alert, comfortable, in no acute distress HEENT: Normocephalic, atraumatic, sclera anicteric, moist mucous membranes CARDIOVASCULAR: Irregularly irregular rhythm with normal rate, normal S1 and S2. No murmurs, rubs, or gallops appreciated. RESPIRATORY: Rhonchi appreciated bilaterally which clears with cough. No wheezing or rales. ABDOMEN: Soft, nontender, nondistended, bowel sounds present. EXTREMITIES: No cyanosis or edema. 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 He was found to be in A. fib with RVR was transferred to [facility] emergency room. He had reported that he was experiencing a productive cough and fevers at home. Upon arrival to emergency room, patient was febrile. He was admitted to the hospital service for further evaluation and treatment. #SOB/cough, improved - Likely 2/2 PNA vs atrial fibrillation - Pt has been afebrile and hemodynamically stable. - Lactic acid elevated on initial presentation but has since been WNL. Blood cultures have been negative. MRSA screen negative. Sputum culture shows many gram-positive cocci pairs, chains and clusters, many gram-negative rods - CXR shows possible L basilar pneumonia. PCT elevated at 1.05 but repeat shows down trend at 0.62 on 10/14/20. - Completed 7 day course of Augmentin for possible PNA - Continue incentive spirometer and acapella. Mucinex for cough. #Atrial fibrillation with RVR - Pt is asymptomatic and reports no chest pain or palpitations. Troponin negative x3. - HR is has improved and is ranging from 68-100. - Echo shows aortic valve sclerosis with mild aortic stenosis and mild aortic regurgitation, mitral annular calcification with mild mitral regurgitation, moderate tricuspid regurgitation with mild pulmonary hypertension, R heart chambers dilated, features of elevated central venous pressure, systolic ejection fraction 60-65%. - Will continue Digoxin 0.125 mg PO daily, Metoprolol 25 mg PO Q6H, Cardizem 30 mg PO Q6H. - Continue eliquis for anticoagulation. #Liver lesions - MRI showed 3 liver mass lesions noted as above suspicious for liver metastatic disease. - Pt reports no hx of any cancers. 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 - at this point, pt would like further work up to determine primary source but is unsure if he will pursue treatment - f/u outpatient with oncology and GI to discuss further work up and treatment. #Hx of COVID-19 - As per documentation, patient was noted to be positive on 09/29, however, review of healthy connections shows negative test - Discussed with [facility]; first COVID19 positive test was on 07/29/2020 and then 09/06; but was negative on 09/29, positive again on 10/12 - Continue Prednisone, taper by 10 mg every 2 days. Supportive care. #Leukocytosis - Patient has a long-standing history of leukocytosis. Patient was referred to an oncologist recently for evaluation on 10/06; Possible workup for JAK2 BCR ABL - Peripheral smear resulted with microcytic hypochromic anemia with moderate anisopoikilocytosis, leukocytosis with predominantly mature neutrophils, adequate morphologically unremarkable platelets, no atypical lymphocytes or blasts identified. - Will have pt f/u with oncology outpatient #Thrombocytosis - Likely 2/2 reactive etiology vs iron deficiency. - f/u CBC daily #COPD - no evidence of acute exacerbation - Continue Proventil PRN and Albuterol. - Continue Symbicort RBID. #Chronic hypotension - Orthostatic vitals positive - Continue Midodrine at adjusted dose #Normocytic anemia - s/p 2 units PRBC, H/H has improved and remained stable after transfusions - Occult stool positive, may need GI workup outpatient for occult bleeding - monitor CBC daily #Lactic acidosis - Resolved. - Lactic acid was 2.2 at time of admission. Most recent lactic acid on 10/14 was 1.5. #Anxiety - Xanax PRN. DVT Prophylaxis: pt has been restarted on home eliquis today for full anticoagulation Disposition: ARU screen vs pending placement for rehab VS,Veronica, I+O VS, Veronica, I+O Laboratory Tests 10/23/20 06:16 Vital Signs Date Time Temp Pulse Resp B/P (MAP) Pulse Ox O2 Delivery O2 Flow Rate FiO2 10/23/20 12:00 71 76/42 10/23/20 08:08 97.9 18 95 Nasal Cannula 2.0 I&O- Last 24 Hours up to 6 AM 10/23/20 06:00 Intake Total 1950 ml Output Total 400 ml Balance 1550 ml NICKI GIMENEZ MD Oct 23, 2020 14:08
[2020-10-23 14:24] VITALS: BP 109/65
[2020-10-23] MEDS: ACETAMINOPHEN TAB 650MG DOSE (2X325MG) PO PRN (21:35)
[2020-10-23] MEDS: LATANOPROST 0.005% OPHTH SOLN 2.5 ML OU SCH (21:37)
[2020-10-23 23:41] VITALS: BP 93/48
[2020-10-24] MEDS: COMBIVENT RESPIMAT 100-20MCG INHALER 4GM INH SCH ×2 (01:54→07:42)
[2020-10-24] MEDS: METOPROLOL TART 25 MG TABLET PO SCH ×3 (05:28→17:32)
[2020-10-24] MEDS: NYSTATIN 500,000 U/5 ML SUSP UDC SS SCH ×3 (05:29→17:31)
[2020-10-24 06:00] VITALS: BP 94/50
[2020-10-24 06:59] LABS: HEMATOCRIT 30.7 % (42.0-52.0); HEMOGLOBIN 8.9 g/dl (13.5-17.5); MEAN CORPUSCULAR HEMOGLOBIN 23.3 pg (27.0-33.0); MEAN CORPUSCULAR VOLUME 80.4 fl (80.0-96.0); PLATELET COUNT, AUTOMATED 601 10^3/uL (150-450); RED BLOOD COUNT 3.82 10^6/uL (4.30-6.10); WHITE BLOOD COUNT 20.8 10^3/uL (4.0-10.0)
[2020-10-24 07:04] LABS: ANISOCYTOSIS 1+; ATYPICAL LYMPH 3 % (0-5); LYMPHOCYTES 34 % (16-44); MONOCYTES 9 % (0-5); NEUTROPHILS 54 % (28-66); PLATELET ESTIMATE INCREASED (NORMAL)
[2020-10-24 07:05] LABS: HYPOCHROMASIA 2+; OVALOCYTES 1+; POIKILOCYTOSIS 2+; SCHISTOCYTES 2+; TARGET CELLS 1+
[2020-10-24 07:18] LABS: ALBUMIN 2.2 GM/DL (3.2-5.2); ALT/SGPT 17 U/L (12-78); BILIRUBIN,TOTAL 0.3 MG/DL (0.2-1.0); BLOOD UREA NITROGEN 23 MG/DL (7-18); CALCIUM LEVEL 7.8 MG/DL (8.8-10.2); CARBON DIOXIDE LEVEL 31 MEQ/L (21-32); CHLORIDE LEVEL 106 MEQ/L (98-107); CREATININE FOR GFR 0.61 MG/DL (0.70-1.30); GLOMERULAR FILTRATION RATE > 60.0 (>35); GLUCOSE, FASTING 93 MG/DL (70-100); POTASSIUM SERUM 3.8 MEQ/L (3.5-5.1); SODIUM LEVEL 140 MEQ/L (136-145); TOTAL PROTEIN 5.3 GM/DL (6.4-8.2)
[2020-10-24] MEDS: SYMBICORT 160/4.5MCG INHALER 6GM INH SCH ×2 (07:44→20:00)
[2020-10-24] MEDS: MIDODRINE 5 MG TAB PO SCH ×3 (08:54→16:21)
[2020-10-24] MEDS: TAMSULOSIN 0.4 MG CAP PO SCH (08:54)
[2020-10-24] MEDS: DIGOXIN 0.125 MG TAB PO SCH (08:55)
[2020-10-24] MEDS: guaiFENesin ER 600 MG TAB PO SCH ×2 (08:55→22:21)
[2020-10-24] MEDS: OMEPRAZOLE 20 MG CAP PO SCH (08:55)
[2020-10-24] MEDS: APIXABAN 5 MG TAB (ELIQUIS) PO SCH ×2 (08:55→22:21)
[2020-10-24] MEDS: SLF 3 ML SYR IV SCH (12:45)
[2020-10-24] MEDS ORDERED: COMBIVENT RESPIMAT 100-20MCG INHALER 4GM INH PRN (14:20)
[2020-10-24] MEDS ORDERED: SYMBICORT 160/4.5MCG INHALER 6GM INH SCH (14:20)
[2020-10-24 17:32] VITALS: BP 104/70
[2020-10-24] MEDS: LATANOPROST 0.005% OPHTH SOLN 2.5 ML OU SCH (22:22)
[2020-10-25] MEDS ORDERED: NYSTATIN 500,000 U/5 ML SUSP UDC As Ordered ONE (00:13)
[2020-10-25] MEDS: NYSTATIN 500,000 U/5 ML SUSP UDC SS SCH ×4 (00:16→17:09)
[2020-10-25] MEDS: SLF 3 ML SYR IV SCH ×4 (00:16→21:13)
[2020-10-25] MEDS: METOPROLOL TART 25 MG TABLET PO SCH ×4 (05:06→17:09)
[2020-10-25 06:00] VITALS: BP 98/68
[2020-10-25 06:54] LABS: BASO # 0.1 10^3/uL (0.0-0.2); BASO % 0.6 % (0.0-1.0); EOS # 0.1 10^3/uL (0.0-0.5); EOS % 0.7 % (0.0-3.0); HEMATOCRIT 31.1 % (42.0-52.0); HEMOGLOBIN 8.7 g/dl (13.5-17.5); LYMPH # 5.6 10^3/uL (1.5-5.0); MEAN CORPUSCULAR HEMOGLOBIN 23.3 pg (27.0-33.0); MEAN CORPUSCULAR VOLUME 83.2 fl (80.0-96.0); MONO # 2.2 10^3/uL (0.0-0.8); MONO % 11.6 % (2.0-8.0); NEUTROPHILS # 9.9 10^3/uL (1.5-8.5); NEUTROPHILS % 53.2 % (36.0-66.0); RED BLOOD COUNT 3.74 10^6/uL (4.30-6.10)
[2020-10-25 07:11] LABS: ALBUMIN 1.9 GM/DL (3.2-5.2); ALT/SGPT 14 U/L (12-78); BILIRUBIN,TOTAL 0.2 MG/DL (0.2-1.0); BLOOD UREA NITROGEN 28 MG/DL (7-18); CALCIUM LEVEL 7.7 MG/DL (8.8-10.2); CARBON DIOXIDE LEVEL 27 MEQ/L (21-32); CHLORIDE LEVEL 108 MEQ/L (98-107); CREATININE FOR GFR 0.57 MG/DL (0.70-1.30); GLOMERULAR FILTRATION RATE > 60.0 (>35); GLUCOSE, FASTING 81 MG/DL (70-100); POTASSIUM SERUM 4.1 MEQ/L (3.5-5.1); SODIUM LEVEL 138 MEQ/L (136-145); TOTAL PROTEIN 5.2 GM/DL (6.4-8.2)
[2020-10-25 07:19] LABS: PLATELET COUNT, AUTOMATED 331 10^3/uL (150-450); WHITE BLOOD COUNT 18.7 10^3/uL (4.0-10.0)
[2020-10-25] MEDS: guaiFENesin ER 600 MG TAB PO SCH ×2 (08:27→21:13)
[2020-10-25] MEDS: MIDODRINE 5 MG TAB PO SCH ×3 (08:27→17:09)
[2020-10-25] MEDS: TAMSULOSIN 0.4 MG CAP PO SCH (08:27)
[2020-10-25] MEDS: OMEPRAZOLE 20 MG CAP PO SCH (08:28)
[2020-10-25] MEDS: APIXABAN 5 MG TAB (ELIQUIS) PO SCH ×2 (08:28→21:13)
[2020-10-25 08:29] VITALS: BP 118/60
[2020-10-25] MEDS: DIGOXIN 0.125 MG TAB PO SCH (08:29)
[2020-10-25] MEDS: SYMBICORT 160/4.5MCG INHALER 6GM INH SCH ×2 (13:13→19:29)
[2020-10-25] MEDS: LATANOPROST 0.005% OPHTH SOLN 2.5 ML OU SCH (21:13)
[2020-10-26] MEDS: NYSTATIN 500,000 U/5 ML SUSP UDC SS SCH ×5 (00:20→23:12)
[2020-10-26] MEDS: METOPROLOL TART 25 MG TABLET PO SCH ×5 (00:20→22:22)
[2020-10-26] MEDS: SLF 3 ML SYR IV SCH ×3 (05:25→22:23)
[2020-10-26 06:00] VITALS: BP 84/40
[2020-10-26 06:20] VITALS: BP 88/56
[2020-10-26] MEDS: MIDODRINE 5 MG TAB PO SCH ×3 (07:11→15:21)
[2020-10-26] MEDS: SYMBICORT 160/4.5MCG INHALER 6GM INH SCH ×2 (07:28→20:41)
[2020-10-26 08:28] LABS: ALBUMIN 2.4 GM/DL (3.2-5.2); ALT/SGPT 15 U/L (12-78); BILIRUBIN,TOTAL 0.3 MG/DL (0.2-1.0); BLOOD UREA NITROGEN 25 MG/DL (7-18); CALCIUM LEVEL 8.2 MG/DL (8.8-10.2); CARBON DIOXIDE LEVEL 31 MEQ/L (21-32); CHLORIDE LEVEL 106 MEQ/L (98-107); CREATININE FOR GFR 0.53 MG/DL (0.70-1.30); GLOMERULAR FILTRATION RATE > 60.0 (>35); GLUCOSE, FASTING 74 MG/DL (70-100); POTASSIUM SERUM 4.5 MEQ/L (3.5-5.1); SODIUM LEVEL 142 MEQ/L (136-145); TOTAL PROTEIN 5.1 GM/DL (6.4-8.2)
[2020-10-26] MEDS: DIGOXIN 0.125 MG TAB PO SCH (09:32)
[2020-10-26] MEDS: guaiFENesin ER 600 MG TAB PO SCH ×2 (09:33→22:20)
[2020-10-26] MEDS: OMEPRAZOLE 20 MG CAP PO SCH (09:33)
[2020-10-26] MEDS: APIXABAN 5 MG TAB (ELIQUIS) PO SCH ×2 (09:33→22:23)
[2020-10-26] MEDS: TAMSULOSIN 0.4 MG CAP PO SCH (09:33)
[2020-10-26 09:50] LABS: HEMATOCRIT 32.1 % (42.0-52.0); HEMOGLOBIN 9.2 g/dl (13.5-17.5); MEAN CORPUSCULAR HEMOGLOBIN 23.1 pg (27.0-33.0); MEAN CORPUSCULAR HGB CONC 28.7 g/dl (32.0-36.5); MEAN CORPUSCULAR VOLUME 80.5 fl (80.0-96.0); PLATELET COUNT, AUTOMATED 674 10^3/uL (150-450); RED BLOOD COUNT 3.99 10^6/uL (4.30-6.10)
[2020-10-26 09:55] LABS: WHITE BLOOD COUNT 19.4 10^3/uL (4.0-10.0)
[2020-10-26 10:53] LABS: ATYPICAL LYMPH 3 % (0-5); LYMPHOCYTES 35 % (16-44); MONOCYTES 2 % (0-5); NEUTROPHILS 60 % (28-66); PLATELET ESTIMATE INCREASED (NORMAL)
[2020-10-26 10:54] LABS: ANISOCYTOSIS 2+; HYPOCHROMASIA 2+; MICROCYTOSIS 1+
[2020-10-26 10:56] LABS: OVALOCYTES 2+; POIKILOCYTOSIS 1+; SCHISTOCYTES 2+; TARGET CELLS 1+
--- NOTE | 2020-10-26 12:41 | IPNPDOC ---
Text Note Date of Service The patient was seen on 10/26/20. NOTE Interval update: Durable medical equipment requirement: Hospital Bed 1. The beneficiary has a medical condition which requires positioning of the bod tatiana in ways not feasible with an ordinary bed. Elevation of the head/upper body less than 30 degrees, does not usually require the use of a hospital bed, or 2. The beneficiary requires positioning of the body in ways not feasible within normal urinary bed in order to alleviate pain, or 3. Beneficiary requires the head of bed to be elevated more than 30 degrees and most of the time due to congestive heart failure, chronic pulmonary disease, or problems with aspiration, or 4. The beneficiary requires traction equipment, which can only be attached to a hospital bed. AND The beneficiary requires frequent changes in body position and/or has any immediate need for a change in body position VS,Fishbone, I+O VS, Fishbone, I+O Laboratory Tests 10/26/20 06:43 10/26/20 09:29 Vital Signs Date Time Temp Pulse Resp B/P (MAP) Pulse Ox O2 Delivery O2 Flow Rate FiO2 10/26/20 12:00 93 88/58 10/26/20 09:45 2.0 10/26/20 06:00 97.7 18 98 Nasal Cannula 10/25/20 19:29 28 I&O- Last 24 Hours up to 6 AM 10/26/20 06:00 Intake Total 720 ml Output Total 800 ml Balance -80 ml BLAYNE FRIEDMAN MD Oct 26, 2020 12:41
[2020-10-26 13:43] VITALS: BP 120/87
[2020-10-26] MEDS: LATANOPROST 0.005% OPHTH SOLN 2.5 ML OU SCH (22:22)
[2020-10-27 05:08] VITALS: BP 101/58
[2020-10-27] MEDS: NYSTATIN 500,000 U/5 ML SUSP UDC SS SCH ×3 (05:13→16:56)
[2020-10-27] MEDS: METOPROLOL TART 25 MG TABLET PO SCH ×3 (05:14→16:56)
[2020-10-27] MEDS: SLF 3 ML SYR IV SCH ×2 (05:15→14:09)
[2020-10-27 07:03] LABS: HEMATOCRIT 29.9 % (42.0-52.0); HEMOGLOBIN 8.7 g/dl (13.5-17.5); MEAN CORPUSCULAR HEMOGLOBIN 23.1 pg (27.0-33.0); MEAN CORPUSCULAR HGB CONC 29.1 g/dl (32.0-36.5); MEAN CORPUSCULAR VOLUME 79.3 fl (80.0-96.0); PLATELET COUNT, AUTOMATED 621 10^3/uL (150-450); RED BLOOD COUNT 3.77 10^6/uL (4.30-6.10)
[2020-10-27 07:07] LABS: WHITE BLOOD COUNT 18.6 10^3/uL (4.0-10.0)
[2020-10-27] MEDS: SYMBICORT 160/4.5MCG INHALER 6GM INH SCH (07:13)
[2020-10-27 07:23] LABS: ALBUMIN 2.3 GM/DL (3.2-5.2); ALT/SGPT 13 U/L (12-78); BILIRUBIN,TOTAL 0.3 MG/DL (0.2-1.0); BLOOD UREA NITROGEN 24 MG/DL (7-18); CALCIUM LEVEL 8.1 MG/DL (8.8-10.2); CARBON DIOXIDE LEVEL 30 MEQ/L (21-32); CHLORIDE LEVEL 106 MEQ/L (98-107); CREATININE FOR GFR 0.62 MG/DL (0.70-1.30); GLOMERULAR FILTRATION RATE > 60.0 (>35); GLUCOSE, FASTING 89 MG/DL (70-100); POTASSIUM SERUM 4.1 MEQ/L (3.5-5.1); SODIUM LEVEL 140 MEQ/L (136-145)
[2020-10-27 07:27] LABS: ATYPICAL LYMPH 5 % (0-5); BASOPHILS 1 % (0-1); EOSINOPHILS 2 % (0-3); LYMPHOCYTES 29 % (16-44); METAMYELOCYTES 1 % (0-0); MONOCYTES 11 % (0-5); NEUTROPHILS 51 % (28-66)
[2020-10-27 07:28] LABS: ANISOCYTOSIS 4+; MICROCYTOSIS 1+; OVALOCYTES 1+; PLATELET ESTIMATE INCREASED (NORMAL)
[2020-10-27 07:29] LABS: HYPOCHROMASIA 1+; SCHISTOCYTES 1+; TARGET CELLS 1+
[2020-10-27] MEDS: TAMSULOSIN 0.4 MG CAP PO SCH (08:24)
[2020-10-27] MEDS: OMEPRAZOLE 20 MG CAP PO SCH (08:24)
[2020-10-27] MEDS: DIGOXIN 0.125 MG TAB PO SCH (08:24)
[2020-10-27] MEDS: APIXABAN 5 MG TAB (ELIQUIS) PO SCH (08:24)
[2020-10-27] MEDS: MIDODRINE 5 MG TAB PO SCH ×3 (08:24→16:56)
[2020-10-27] MEDS: guaiFENesin ER 600 MG TAB PO SCH (08:24)
[2020-10-27] MEDS ORDERED: MIDO5TA PO (15:09)
[2020-10-27] MEDS ORDERED: OMEP-218 PO (15:09)
[2020-10-27] MEDS ORDERED: METO1TAB7 PO (15:09)
--- NOTE | 2020-10-27 16:39 | DS.PDOC ---
Discharge Summary General Date of Admission Oct 12, 2020 at 22:38 Date of Discharge 10/27/2020 Discharge Summary PROCEDURES PERFORMED DURING STAY: Liver Biopsy 10/19: Metastatic adenocarcinoma, consistent with a GI primary, most likely lower GI/colon, correlation with clinical and radiologic findings is recommended. ADMITTING DIAGNOSES / DISCHARGE DIAGNOSES: s/p Shortness of breath / cough - likely 2/2 A. fib; less likely 2/2 bacterial pneumonia, unlikely 2/2 COVID-19 A. fib with RVR Liver lesions Leukocytosis COVID-19 s/p Hypoxic respiratory failure s/p Lactic acidosis Normocytic anemia Thrombocytosis - likely 2/2 reactive etiology; possibly 2/2 Iron deficiency Chronic COPD Chronic hypotension Anxiety GI prophylaxis DVT prophylaxis COMPLICATIONS/CHIEF COMPLAINT: A. 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 She was found to be in A. fib with RVR was transferred to [facility] emergency room. He had reported that he was experiencing a productive cough and fevers at home. Upon arrival to emergency room, patient was febrile. He was admitted to the hospital service for further evaluation and treatment. HOSPITAL COURSE: s/p Shortness of breath / cough - likely 2/2 A. fib; less likely 2/2 bacterial pneumonia, unlikely 2/2 COVID-19 - Clinically patient reports that he is not experiencing any shortness of breath or cough - s/p Lactic acidosis - PCT improved - Blood cultures 10/13: Negative at 5 days - Sputum cultures 10/13: Many gram-positive cocci pairs, chains and clusters, many gram-negative rods; negative overall - PCT mildly elevated; repeat pending - Imaging noted above; no definitive evidence of pneumonia - s/p Augmentin; s/p Vancomycin and Zosyn (Completed antibiotic course) - s/p incentive spirometry / acapella / Mucinex A. fib with RVR - HR well controlled - Troponin 3 negative - Thyroid function noted - Echo shows aortic valve sclerosis with mild aortic stenosis and mild aortic regurgitation, mitral annular calcification with mild mitral regurgitation, moderate tricuspid regurgitation with mild pulmonary hypertension, R heart chambers dilated, features of elevated central venous pressure, systolic ejection fraction 60-65%. - c/w Digoxin, Metoprolol, Diltiazem - c/w Full anticoagulation with Eliquis Liver lesions - MRI showed 3 liver mass lesions noted as above suspicious for liver metastatic disease. 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 - I have advised the patient and his of the findings of biopsy; patient is strongly advised to seek colonoscopy and pursue treatment - Patient is still considering whether he wants to subject himself to a colonoscopy; reports that he knows many people that have developed complications - Advised patient to follow-up with oncology / gastroenterology for treatment Leukocytosis - Patient has a long-standing history of leukocytosis - Patient was referred to an oncologist recently for evaluation on 10/06; Possible workup for JAK2 BCR ABL - Peripheral smear resulted with microcytic hypochromic anemia with moderate anisopoikilocytosis, leukocytosis with predominantly mature neutrophils, adequa te morphologically unremarkable platelets, no atypical lymphocytes or blasts identified. - has been advised to follow-up with oncology, Dr. Vicki CHIN-19 - As per documentation, patient was noted to be positive on 09/29, however, review of healthy connections shows negative test - Discussed with [facility]; first COVID19 positive test was on 07/29/2020 and then 09/06; but was negative on 09/29, positive on 10/12 - s/p Prednisone taper - c/w Supportive care s/p Hypoxic respiratory failure - Patient reports that he has been started on oxygen since July after he had a COVID19 infection - Patient has been transitioned off of oxygen completely and is tolerating room air s/p Lactic acidosis Normocytic anemia - Hemoglobin has improved after transfusions - No dark bowel movement noted recently - Occult stool pending - s/p 2 units PRBC Thrombocytosis - likely 2/2 reactive etiology; possibly 2/2 Iron deficiency - Will continue to follow Chronic COPD - Mild wheezing noted - c/w Inhaled therapy as ordered - s/p Prednisone Chronic hypotension - s/p Orthostatic vitals - Was started as an outpatient on 10/10 - c/w Midodrine at adjusted dose Anxiety - c/w Xanax PRN GI prophylaxis - c/w Omeprazole; s/p Protonix / Carafate DVT prophylaxis - c/w full anticoagulation with Eliquis DISCHARGE MEDICATIONS: Please see below. ALLERGIES: Please see below. PHYSICAL EXAMINATION ON DISCHARGE: Vitals (See below) General: Sitting up in bed, appears to be comfortable, not in any acute distress, cooperative, oriented to person, place, time and president HEENT: PRABHU AT CVS: +S1S2 Lungs: Air entry is fair bilaterally without evidence of wheezing, crackles or rhonchi Abdomen: Nondistended, nontender, soft Extremities: Lower extremities are without any edema LABORATORY DATA: Please see below. IMAGING: CXR 10/13: 1. Possible left basilar pneumonia. 2. Hyperinflation and chronic lung changes. Duplex US LE 10/13: There is no deep vein thrombus in the right or left lower extremities. Duplex US UE 10/13: The left cephalic vein was not seen. Otherwise negative bilateral upper extremity venous ultrasound. No evidence of deep venous thrombosis.. CTA Chest 10/14: No CT evidence of pulmonary embolus. CHF pattern. Small bilateral pleural effusions. Bilateral lower lobe compressive atelectasis and upper lobe fibrosis. No definite focal infiltrate CT abdomen / pelvis 10/16: Limited study secondary to motion artifact. Liver lesions concerning for metastatic disease as described above, further evaluation with contrast enhanced MRI examination is recommended. Moderate fecal loading in the rectum. Diverticulosis without any CT evidence of diverticulitis. Fluid in nondistended colon may represent mild colitis. No small bowel dilatation or obstruction. MRI Abdomen 10/17: There are 3 liver mass lesions noted as above suspicious for liver metastatic disease. Consider histologic sampling with ultrasound or CT guided needle biopsy. ACTIVITY: [As tolerated]. Durable medical equipment requirement: Hospital Bed 1. The beneficiary has a medical condition which requires positioning of the bodily in ways not feasible with an ordinary bed. Elevation of the head/upper body less than 30 degrees, does not usually require the use of a hospital bed, or 2. The beneficiary requires positioning of the body in ways not feasible within normal urinary bed in order to alleviate pain, or 3. Beneficiary requires the head of bed to be elevated more than 30 degrees and most of the time due to congestive heart failure, chronic pulmonary disease, or problems with aspiration, or 4. The beneficiary requires traction equipment, which can only be attached to a hospital bed. AND The beneficiary requires frequent changes in body position and/or has any immediate need for a change in body position DISCHARGE PLAN: Follow-up with primary care provider, cardiology, oncology and gastroenterology within the next 7 days Remain compliant with treatment plan and medications Return to the ER if you experience any problems DISPOSITION: Home with services DISCHARGE CONDITION: [Stable]. TIME SPENT ON DISCHARGE: 35 minutes. Vital Signs/I&Os Vital Signs Date Time Temp Pulse Resp B/P (MAP) Pulse Ox O2 Delivery O2 Flow Rate FiO2 10/27/20 12:31 97 106/69 10/27/20 09:00 2.0 10/27/20 05:08 98.6 18 97 Nasal Cannula 10/26/20 20:43 28 I&O- Last 24 Hours up to 6 AM 10/27/20 05:59 Intake Total 1430 ml Output Total 1000 ml Balance 430 ml Laboratory Data Labs 24H Laboratory Tests 2 10/27/20 06:40: Neutrophils (%) (Auto) , Nucleated Red Blood Cells % (auto) 0.0, Neutrophils 51, Lymphocytes (Manual) 29, Monocytes (Manual) 11H, Eosinophils (Manual) 2, Basophils (Manual) 1, Metamyelocytes 1H, Atypical Lymphocytes 5, Hypochromasia 1+, Anisocytosis 4+, Microcytosis 1+, Schistocytes 1+, Target Cells 1+, Ovalocytes 1+, Platelet Estimate INCREASED, Anion Gap 4L, Glomerular Filtration Rate > 60.0, Calcium Level 8.1L, Total Bilirubin 0.3, Aspartate Amino Transf (AST/SGOT) 9, Alanine Aminotransferase (ALT/SGPT) 13, Alkaline Phosphatase 62, Total Protein 5.0L, Albumin 2.3L, Albumin/Globulin Ratio 0.9 CBC/BMP Laboratory Tests 10/27/20 06:40 Microbiology Microbiology 10/17/20 Stool Occult Blood (SOCORRO) - Final, Complete Discharge Medications Scheduled Aspirin (Aspirin EC) 81 Mg Tablet.dr, 81 MG PO DAILY, (Reported) Budesonide/Formoterol (Symbicort 160-4.5 Mcg Inhaler) 6 Gm Hfa.aer.ad, 2 PUFF INH BID, (Reported) Denosumab Injection (Prolia) 60 Mg/1 Ml Syringe, 60 MG SC ASDIRECTED, (Reported) EVERY 6 MONTHS: TAKEN AROUND September Digoxin (Digoxin) 125 Mcg Tablet, 125 MCG PO DAILY, (Reported) Docusate Sodium (Docusate Sodium) 100 Mg Capsule, 100 MG PO BID, (Reported) Metoprolol Succinate (Metoprolol Succinate) 50 Mg Tab.er.24h, 50 MG PO BID Midodrine HCl (Midodrine HCl) 5 Mg Tablet, 5 MG PO TID@0800,1200,1600 Omeprazole (Omeprazole) 20 Mg Capsule.dr, 40 MG PO DAILY Scopolamine (Transderm-Scop) 1 Each Patch.td.3, 1.5 MG TOP Q3RD, (Reported) Tamsulosin HCl (Flomax) 0.4 Mg Capsule, 0.4 MG PO DAILY, (Reported) Travoprost (Travatan Z) 0.004% 2.5ML Drops, 1 DROP OU QHS, (Reported) Umeclidinium [place] (Incruse Ellipta) 62.5 Mcg Blst.w.dev, 1 PUFF INH DAILY, (R eported) Vortioxetine Hydrobromide (Trintellix) 10 Mg Tablet, 10 MG PO DAILY, (Reported) dilTIAZem HCl (Diltiazem 24Hr Cd) 120 Mg Cap.er.24h, 120 MG PO DAILY, (Reported) Scheduled PRN Albuterol Sulfate (Proair Hfa) 8.5 Gm Hfa.aer.ad, 2 PUFF INH Q4H PRN for SHORTNESS OF BREATH, (Reported) Alprazolam (Alprazolam) 0.25 Mg Tablet, 0.25 MG PO TID PRN for ANXIETY, (Reported) Benzonatate (Benzonatate) 100 Mg Capsule, 100 MG PO Q8H PRN for COUGH, (Reported) Bisacodyl (Bisacodyl) 10 Mg Supp.rect, 10 MG [place] DAILY PRN for CONSTIPATION, (Reported) Ipratropium/Albuterol Sulfate (Iprat-Albut 0.5-3(2.5) mg/3 ml) 3 Ml Ampul.neb, 3 ML INH TID PRN for SHORTNESS OF BREATH, (Reported) Ondansetron HCl (Ondansetron HCl) 4 Mg Tablet, 4 MG PO Q8H PRN for NAUSEA OR VOMITING, (Reported) Protein Supplement (Protein Powder) 454 Gm Powder, 1 DOSE PO BID PRN for WEIGHT LOSS, (Reported) Tramadol HCl (Tramadol HCl) 50 Mg Tablet, 50 MG PO BID PRN for PAIN, (Reported) Allergies Coded Allergies: Sulfa (Sulfonamide Antibiotics) (Verified Adverse Reaction, Unknown, VOMIT, 10/12/20) BLAYNE FRIEDMAN MD Oct 27, 2020 16:39
[2020-10-27 16:56] VITALS: BP 103/60
== END 2020-10-27 19:00 | disposition home health service (06) | DRG 309 ==
LOC: M ICU 22:38 → M 4MAIN 10-14 00:46 → M PCU 10-15 11:00 → M MS5PR 10-19 18:22
PROVIDERS: ADMIT Internal Medicine; ATTEND Internal Medicine
PROC: 30233N1 Transfusion of Nonautologous Red Blood Cells into Peripheral Vein, Percutaneous Approach (ICD-10-PCS; principal; 2020-10-13)
PROC: 0FB13ZX Excision of Right Lobe Liver, Percutaneous Approach, Diagnostic (ICD-10-PCS; 2020-10-19)
DX: I48.91 Unspecified atrial fibrillation (principal); E87.2 Acidosis; I50.32 Chronic diastolic (congestive) heart failure; J96.11 Chronic respiratory failure with hypoxia; C78.7 Secondary malignant neoplasm of liver and intrahepatic bile duct; I13.0 Hypertensive heart and chronic kidney disease with heart failure and stage 1 through stage 4 chronic kidney disease, or unspecified chronic kidney disease; N18.2 Chronic kidney disease, stage 2 (mild); J44.9 Chronic obstructive pulmonary disease, unspecified; I95.89 Other hypotension; M81.0 Age-related osteoporosis without current pathological fracture; D47.3 Essential (hemorrhagic) thrombocythemia; F41.9 Anxiety disorder, unspecified; I27.20 Pulmonary hypertension, unspecified; D50.9 Iron deficiency anemia, unspecified; C26.9 Malignant neoplasm of ill-defined sites within the digestive system; E55.9 Vitamin D deficiency, unspecified; Z87.891 Personal history of nicotine dependence; Z86.16 Personal history of COVID-19; Z79.82 Long term (current) use of aspirin; Z79.899 Other long term (current) drug therapy; Z88.2 Allergy status to sulfonamides; Z99.81 Dependence on supplemental oxygen

== ENCOUNTER 2020-12-28 18:54 | Inpatient (IN) | payer MEDICARE, MEDICAID ==
[~2020-12-28] VITALS: Ht 172.7 cm; Wt 73.6 kg
[~2020-12-28 18:54] MED LIST changes: +ALPR0.25 PO; +ASPI-161 PO; +BENZ-18 PO; +BISA10SU4 PR; +BRIN10TA4 PO; +DIGO0.123 PO; +DILT120C89 PO; +DOCU100C16 PO; +IPRA0.00 INH; +METO1TAB7 PO; +MIDO2.5T PO; +MIDO5TA PO; +OMEP-218 PO; +ONDA-83 PO; +PATIENT COMMENT; +PROAAER10 INH; +PROL60SO SC; +SCOP1PAT2 TOP; +TRAM50TA2 PO; +TRAV04OPD OU; +[UNRECOGNIZED DRUG - CODE] PO
--- NOTE | 2020-12-28 20:20 | REP ---
INDICATION: dyspnea. COMPARISON: 10/13/2020 TECHNIQUE: Portable FINDINGS: There is a new patchy opacity in the right lower lobe. The heart is magnified by technique. There is chronic left basilar change......,. The osseous structures are stable. IMPRESSION: New right basilar opacities pneumonia/atelectasis. <Electronically signed by Ant Pickard > 12/28/202015
[2020-12-28 20:42] LABS: BASO # 0.1 10^3/uL (0.0-0.2); BASO % 0.6 % (0.0-1.0); EOS % 0.1 % (0.0-3.0); HEMATOCRIT 34.6 % (42.0-52.0); HEMOGLOBIN 9.9 g/dl (13.5-17.5); LYMPH # 5.2 10^3/uL (1.5-5.0); LYMPH % 36.4 % (24.0-44.0); MEAN CORPUSCULAR HEMOGLOBIN 22.6 pg (27.0-33.0); MEAN CORPUSCULAR HGB CONC 28.6 g/dl (32.0-36.5); MEAN CORPUSCULAR VOLUME 78.8 fl (80.0-96.0); MONO # 1.3 10^3/uL (0.0-0.8); MONO % 9.2 % (2.0-8.0); NEUTROPHILS # 7.6 10^3/uL (1.5-8.5); PLATELET COUNT, AUTOMATED 416 10^3/uL (150-450); RED BLOOD COUNT 4.39 10^6/uL (4.30-6.10)
[2020-12-28] MEDS ORDERED: OMEP-218 PO (20:42)
[2020-12-28] MEDS ORDERED: POTA10CA32 PO (20:42)
[2020-12-28] MEDS ORDERED: FURO40TA2 PO (20:42)
[2020-12-28] MEDS ORDERED: MIDO5TA PO (20:42)
[2020-12-28] MEDS ORDERED: DIPH2.5T15 PO (20:42)
[2020-12-28] MEDS ORDERED: METO1TAB7 PO (20:42)
[2020-12-28 20:43] LABS: WHITE BLOOD COUNT 14.4 10^3/uL (4.0-10.0)
[2020-12-28] MEDS ORDERED: HOME MED LIST COMPLETE! XX SCH (20:45)
[2020-12-28 21:02] LABS: ALBUMIN 1.9 GM/DL (3.2-5.2); ALT/SGPT 13 U/L (12-78); BILIRUBIN,DIRECT 0.2 MG/DL (0.0-0.2); BILIRUBIN,TOTAL 0.4 MG/DL (0.2-1.0); BLOOD UREA NITROGEN 22 MG/DL (7-18); CALCIUM LEVEL 7.2 MG/DL (8.8-10.2); CARBON DIOXIDE LEVEL 31 MEQ/L (21-32); CHLORIDE LEVEL 107 MEQ/L (98-107); CREATININE FOR GFR 0.96 MG/DL (0.70-1.30); GLOMERULAR FILTRATION RATE > 60.0 (>35); GLUCOSE, FASTING 83 MG/DL (70-100); POTASSIUM SERUM 4.3 MEQ/L (3.5-5.1); SODIUM LEVEL 143 MEQ/L (136-145); TOTAL PROTEIN 6.7 GM/DL (6.4-8.2)
[2020-12-28] MEDS ORDERED: MAALOX 30 ML SUSP *UDC PO PRN (21:20)
[2020-12-28] MEDS ORDERED: ATROPINE SULFATE 1% OP SOLN 2 ML BTL SL PRN (21:20)
[2020-12-28] MEDS ORDERED: FLEET ENEMA PR PRN (21:20)
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
[2020-12-28] MEDS ORDERED: ALBUTEROL 90 MCG/ACT 8GM HFA INHALER INH PRN (22:50)
[2020-12-28] MEDS ORDERED: BENZONATATE 100 MG CAP PO PRN (22:50)
[2020-12-28] MEDS ORDERED: LOMOTIL 2.5MG/0.025MG TABLET PO PRN (22:50)
[2020-12-29] MEDS: LATANOPROST 0.005% OPHTH SOLN 2.5 ML OU SCH ×2 (00:38→20:34)
[2020-12-29] MEDS: traMADol 50 MG TAB PO PRN (02:47)
[2020-12-29] MEDS: SYMBICORT 160/4.5MCG INHALER 6GM INH SCH ×2 (07:33→20:03)
[2020-12-29] MEDS: OMEPRAZOLE 20 MG CAP PO SCH (08:13)
[2020-12-29] MEDS: ONDANSETRON 4 MG ORAL DISINTEGRATING TAB PO PRN (08:14)
[2020-12-29] MEDS ORDERED: FLUBLOK(EGG FREE)(QUAD)INFLUENZA VACC 0.5ML SYRINGE 18YRS & OLDER IM ONE (09:00)
--- NOTE | 2020-12-29 12:28 | IPNPDOC ---
Text Note Date of Service The patient was seen on 12/29/20. NOTE SUBJECTIVE: -No acute events overnight GENERAL APPEARANCE: NAD HEENT: EOMI , MMM CARDIOVASCULAR: RRR, no m/r/g LUNGS: On room air, has transmitted upper airway sounds, diminished ABDOMEN: normoactive sounds, soft PSYCHIATRIC: A&Ox3 LABORATORY DATA: None this AM IMAGING: Chest xray IMPRESSION: New right basilar opacities pneumonia/atelectasis. 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 Pulmonary HTN, CAD, Hx of recurrent PNA, & Essential HTN who presented w c/o weakness and was diagnosed w PNA but opted to focus on being comfortable and would like to be enrolled in hospice. 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
--- NOTE | 2020-12-29 19:48 | ECGEPIP ---
[facility] - ED Test Date: 2020-12-28 Pat Name: NIRAJ EVERETT Department: Room: [place] [address] Gender: Male Learning Facilitator: : [id number] Requested By: Dom Galvan Order Number: [id number] Reading MD: Sylvain Priest Measurements Intervals Printer Rate: 93 P: NV: QRS: 38 QRSD: 76 T: 254 QT: 326 QTc: 405 Interpretive Statements Atrial fibrillation Low voltage QRS ST & T wave abnormality, consider anterior/inferior ischemia- new from tracing done 10-12-20 Electronically Signed on 12-29-2020 19:48:32 EDT by Sylvain Priest
[2020-12-30] MEDS: HYOSCYAMINE SULFATE 0.125 MG SUBL TABLET PO PRN (05:08)
[2020-12-30] MEDS: SYMBICORT 160/4.5MCG INHALER 6GM INH SCH ×2 (07:25→19:56)
[2020-12-30] MEDS: OMEPRAZOLE 20 MG CAP PO SCH (09:12)
[2020-12-30] MEDS: traMADol 50 MG TAB PO PRN (09:13)
[2020-12-30] MEDS ORDERED: SODIUM CHLORIDE NASAL 0.65% SPRAY BTL (OCEAN) PRN (09:20)
--- NOTE | 2020-12-30 12:22 | IPNPDOC ---
Text Note Date of Service The patient was seen on 12/30/20. NOTE SUBJECTIVE: -No acute events overnight -Conversational this morning, examined while eating breakfast GENERAL APPEARANCE: NAD HEENT: EOMI , MMM CARDIOVASCULAR: RRR, no m/r/g LUNGS: CTAB, breathing comfortably ABDOMEN: normoactive sounds, soft PSYCHIATRIC: A&Ox3 LABORATORY DATA: None IMAGING: Chest xray IMPRESSION: New right basilar opacities pneumonia/atelectasis. 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 Pulmonary HTN, CAD, Hx of recurrent PNA, & Essential HTN who presented w c/o weakness and was diagnosed w PNA but opted to focus on being comfortable and would like to be enrolled in hospice. 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 Made ALC today pending placement. VS,Fishbone, I+O VS, Fishbone, I+O Vital Signs Date Time Temp Pulse Resp B/P (MAP) Pulse Ox O2 Delivery O2 Flow Rate FiO2 12/30/20 09:13 18 12/29/20 21:00 5.0 12/28/20 22:15 83 116/67 (83) 94 Nasal Cannula 12/28/20 19:09 97.3 I&O- Last 24 Hours up to 6 AM 12/30/20 06:00 Intake Total 1810 ml Output Total 675 ml Balance 1135 ml PETERSON GILLETTE MD Dec 30, 2020 12:22
[2020-12-30] MEDS: LATANOPROST 0.005% OPHTH SOLN 2.5 ML OU SCH (20:57)
[2020-12-31] MEDS: SYMBICORT 160/4.5MCG INHALER 6GM INH SCH ×2 (07:20→20:28)
[2020-12-31] MEDS: ONDANSETRON 4 MG ORAL DISINTEGRATING TAB PO PRN ×2 (08:13→18:07)
[2020-12-31] MEDS: OMEPRAZOLE 20 MG CAP PO SCH (08:14)
[2020-12-31] MEDS: HYOSCYAMINE SULFATE 0.125 MG SUBL TABLET PO PRN (21:11)
[2020-12-31] MEDS: LATANOPROST 0.005% OPHTH SOLN 2.5 ML OU SCH (21:12)
[2020-12-31] MEDS: MOM 30ML SUSPENSION UDC PO PRN (21:17)
[2021-01-01] MEDS: SYMBICORT 160/4.5MCG INHALER 6GM INH SCH ×2 (07:19→20:55)
[2021-01-01] MEDS: ONDANSETRON 4 MG ORAL DISINTEGRATING TAB PO PRN (07:57)
[2021-01-01] MEDS: OMEPRAZOLE 20 MG CAP PO SCH (07:57)
[2021-01-01] MEDS: LATANOPROST 0.005% OPHTH SOLN 2.5 ML OU SCH (20:44)
[2021-01-02] MEDS: LORazepam 1 MG TAB PO PRN (02:35)
[2021-01-02] MEDS: traMADol 50 MG TAB PO PRN (02:36)
[2021-01-02] MEDS: SYMBICORT 160/4.5MCG INHALER 6GM INH SCH ×2 (07:34→19:25)
[2021-01-02] MEDS: OMEPRAZOLE 20 MG CAP PO SCH (09:29)
[2021-01-02] MEDS: IPRATROPIUM 0.5MG/ALBUTEROL 2.5MG INH SOL UD 3ML (DUONEB) INH PRN (20:31)
[2021-01-02] MEDS: LATANOPROST 0.005% OPHTH SOLN 2.5 ML OU SCH (21:00)
[2021-01-03] MEDS: IPRATROPIUM 0.5MG/ALBUTEROL 2.5MG INH SOL UD 3ML (DUONEB) INH PRN (04:42)
[2021-01-03] MEDS: SYMBICORT 160/4.5MCG INHALER 6GM INH SCH ×2 (07:10→19:33)
[2021-01-03] MEDS: MOM 30ML SUSPENSION UDC PO PRN (08:29)
[2021-01-03] MEDS: OMEPRAZOLE 20 MG CAP PO SCH (08:30)
[2021-01-03] MEDS: traMADol 50 MG TAB PO PRN (08:30)
[2021-01-03] MEDS: SCOPOLAMINE 1MG TRANSDERMAL PATCH TOP PRN (08:30)
[2021-01-03] MEDS: LATANOPROST 0.005% OPHTH SOLN 2.5 ML OU SCH (21:00)
[2021-01-04] MEDS: SYMBICORT 160/4.5MCG INHALER 6GM INH SCH ×2 (07:10→20:02)
[2021-01-04] MEDS: OMEPRAZOLE 20 MG CAP PO SCH (07:57)
[2021-01-04] MEDS: ONDANSETRON 4 MG ORAL DISINTEGRATING TAB PO PRN (09:42)
[2021-01-04] MEDS: FUROSEMIDE 40 MG TAB PO PRN (09:42)
[2021-01-04] MEDS: LORazepam 1 MG TAB PO PRN (09:44)
[2021-01-04] MEDS: LATANOPROST 0.005% OPHTH SOLN 2.5 ML OU SCH (22:53)
[2021-01-05] MEDS: SYMBICORT 160/4.5MCG INHALER 6GM INH SCH ×2 (07:26→19:30)
[2021-01-05] MEDS: OMEPRAZOLE 20 MG CAP PO SCH (09:34)
[2021-01-05] MEDS: ONDANSETRON 4 MG ORAL DISINTEGRATING TAB PO PRN (09:34)
[2021-01-05] MEDS: FUROSEMIDE 40 MG TAB PO PRN (09:34)
[2021-01-05] MEDS: MOM 30ML SUSPENSION UDC PO PRN (09:34)
[2021-01-05] MEDS ORDERED: SENOKOT S TAB PO PRN (15:30)
[2021-01-05] MEDS: LATANOPROST 0.005% OPHTH SOLN 2.5 ML OU SCH (20:00)
[2021-01-05 21:40] VITALS: BP 85/57
[2021-01-06] MEDS: IPRATROPIUM 0.5MG/ALBUTEROL 2.5MG INH SOL UD 3ML (DUONEB) INH PRN (00:07)
[2021-01-06] MEDS: SYMBICORT 160/4.5MCG INHALER 6GM INH SCH ×2 (07:30→19:22)
[2021-01-06] MEDS: OMEPRAZOLE 20 MG CAP PO SCH (09:04)
[2021-01-06] MEDS: FUROSEMIDE 40 MG TAB PO PRN (09:04)
[2021-01-06] MEDS: LATANOPROST 0.005% OPHTH SOLN 2.5 ML OU SCH (20:37)
[2021-01-07] MEDS: SYMBICORT 160/4.5MCG INHALER 6GM INH SCH ×2 (07:13→19:50)
[2021-01-07] MEDS: OMEPRAZOLE 20 MG CAP PO SCH (08:53)
[2021-01-07] MEDS: LATANOPROST 0.005% OPHTH SOLN 2.5 ML OU SCH (23:10)
[2021-01-08] MEDS: SYMBICORT 160/4.5MCG INHALER 6GM INH SCH ×2 (07:46→20:37)
[2021-01-08] MEDS: ONDANSETRON 4 MG ORAL DISINTEGRATING TAB PO PRN (09:39)
[2021-01-08] MEDS: LORazepam 1 MG TAB PO PRN (09:39)
[2021-01-08] MEDS: OMEPRAZOLE 20 MG CAP PO SCH (09:39)
[2021-01-08] MEDS: LATANOPROST 0.005% OPHTH SOLN 2.5 ML OU SCH (21:00)
[2021-01-09] MEDS: SYMBICORT 160/4.5MCG INHALER 6GM INH SCH ×2 (07:32→19:41)
[2021-01-09] MEDS: MORPHINE 10MG/0.5ML ORAL CONCENTRATE SOLUTION U/D SL PRN (09:04)
[2021-01-09] MEDS: SCOPOLAMINE 1MG TRANSDERMAL PATCH TOP PRN (09:05)
[2021-01-09] MEDS: traMADol 50 MG TAB PO PRN (09:06)
[2021-01-09] MEDS: LORazepam 1 MG TAB PO PRN (09:06)
[2021-01-09] MEDS: OMEPRAZOLE 20 MG CAP PO SCH (09:08)
[2021-01-09] MEDS: LATANOPROST 0.005% OPHTH SOLN 2.5 ML OU SCH (21:00)
[2021-01-10] MEDS: SYMBICORT 160/4.5MCG INHALER 6GM INH SCH ×2 (07:48→19:35)
[2021-01-10] MEDS: HYOSCYAMINE SULFATE 0.125 MG SUBL TABLET PO PRN ×2 (07:56→15:59)
[2021-01-10] MEDS: OMEPRAZOLE 20 MG CAP PO SCH (07:56)
[2021-01-10] MEDS ORDERED: ANALGESIC BALM CRM 3OZ TOP PRN (08:10)
[2021-01-10] MEDS: ACETAMINOPHEN TAB 650MG DOSE (2X325MG) PO PRN (15:59)
[2021-01-10] MEDS: traMADol 50 MG TAB PO PRN (18:02)
[2021-01-10] MEDS: LATANOPROST 0.005% OPHTH SOLN 2.5 ML OU SCH (22:23)
[2021-01-11] MEDS: ONDANSETRON 4 MG ORAL DISINTEGRATING TAB PO PRN (05:06)
[2021-01-11] MEDS: SYMBICORT 160/4.5MCG INHALER 6GM INH SCH ×2 (07:46→19:40)
[2021-01-11] MEDS: OMEPRAZOLE 20 MG CAP PO SCH (09:26)
[2021-01-11] MEDS: FUROSEMIDE 40 MG TAB PO PRN (09:26)
[2021-01-11] MEDS: traMADol 50 MG TAB PO PRN (09:27)
[2021-01-11] MEDS: LATANOPROST 0.005% OPHTH SOLN 2.5 ML OU SCH (21:49)
[2021-01-12] MEDS: IPRATROPIUM 0.5MG/ALBUTEROL 2.5MG INH SOL UD 3ML (DUONEB) INH PRN (06:33)
[2021-01-12] MEDS: LORazepam 1 MG TAB PO PRN (06:33)
[2021-01-12] MEDS: SYMBICORT 160/4.5MCG INHALER 6GM INH SCH ×2 (07:28→20:15)
[2021-01-12] MEDS: OMEPRAZOLE 20 MG CAP PO SCH (09:00)
[2021-01-12] MEDS ORDERED: ATIV1TAB7 PO (13:26)
[2021-01-12] MEDS ORDERED: ACET1TAB55 PO (13:26)
[2021-01-12] MEDS ORDERED: BENZ-18 PO (13:26)
[2021-01-12] MEDS ORDERED: ATRO1OPD SL (13:26)
[2021-01-12] MEDS ORDERED: MORP1SOL SL (13:26)
[2021-01-12] MEDS ORDERED: MUSCCRE9 TOP (13:26)
--- NOTE | 2021-01-12 13:46 | DS.PDOC ---
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 HISTORY OF PRESENT ILLNESS: 89 yr old M w metastatic adenocarcinoma who elected to have his cancer managed conservatively and was living at home with his , who has her own problems and could not take care of him and he was increasingly weak, short of breath and feeling unwell such that he opted to come to the hospital so that he could seek symptomatic relief and get help with a plan to enter a hospice or half-way facility. HOSPITAL COURSE: On evaluation, he was weak, hypoxemic and generally feeling weak. Investigations showed a R basilar PNA with associated leukocytosis. He expressed desire to only be made comfortable and not seek corrective therapies including antibiotics and was DNR/DNI and would only want to seek pain and symptoms treatment with desire to be discharged to hospice as his could not care for him any longer or a half-way facility. He is now being discharged to a [facility]. DISCHARGE MEDICATIONS: Please see below. ALLERGIES: Please see below. PHYSICAL EXAMINATION ON DISCHARGE: VITAL SIGNS: Please see below. GENERAL APPEARANCE: NAD HEENT: EOMI , MMM CARDIOVASCULAR: RRR, no m/r/g LUNGS: CTAB, breathing comfortably ABDOMEN: normoactive sounds, soft PSYCHIATRIC: A&Ox3 LABORATORY DATA: Please see below. IMAGING: CXR: There is a new patchy opacity in the right lower lobe. The heart is magnified by technique. There is chronic left basilar change. The osseous structures are stable. IMPRESSION: New right basilar opacities pneumonia/atelectasis. PROGNOSIS: Poor ACTIVITY: As tolerated DIET: Regular, as tolerated DISCHARGE PLAN: [facility], [facility] DISPOSITION: [facility] DISCHARGE INSTRUCTIONS: [facility] patient ITEMS TO FOLLOWUP ON ON OUTPATIENT: Comfort measures with symptom management DISCHARGE CONDITION: Stable TIME SPENT ON DISCHARGE: 42 minutes. Vital Signs/I&Os Vital Signs Date Time Temp Pulse Resp B/P (MAP) Pulse Ox O2 Delivery O2 Flow Rate FiO2 01/12/21 09:00 5.0 01/10/21 18:32 16 I&O- Last 24 Hours up to 6 AM 01/12/21 05:59 Intake Total 330 ml Balance 330 ml Laboratory Data Labs 24H Laboratory Tests 2 01/12/21 12:08: Coronavirus (COVID-19)(PCR) NEGATIVE Discharge Medications Scheduled Budesonide/Formoterol (Symbicort 160-4.5 Mcg Inhaler) 6 Gm Hfa.aer.ad, 2 PUFF INH BID, (Reported) Docusate Sodium (Docusate Sodium) 100 Mg Capsule, 100 MG PO BID, (Reported) Omeprazole (Omeprazole) 20 Mg Capsule.dr, 40 MG PO DAILY, (Reported) Travoprost (Travatan Z) 0.004% 2.5ML Drops, 1 DROP OU QHS, (Reported) Umeclidinium [place] (Incruse Ellipta) 62.5 Mcg Blst.w.dev, 1 PUFF INH DAILY, (Reported) Vortioxetine Hydrobromide (Trintellix) 10 Mg Tablet, 10 MG PO DAILY, (Reported) Scheduled PRN Acetaminophen (Acetaminophen) 325 Mg Tablet, 650 MG PO Q4H PRN for PAIN OR FEVER Albuterol Sulfate (Proair Hfa) 8.5 Gm Hfa.aer.ad, 2 PUFF INH Q4H PRN for SHORTNESS OF BREATH, (Reported) Atropine Sulfate (Atropine Sulfate) 1% 2ML Drops, 1 DROP SL Q2HP PRN for TERMINAL SECRETIONS Benzonatate (Benzonatate) 100 Mg Capsule, 100 MG PO Q8H PRN for COUGH Bisacodyl (Bisacodyl) 10 Mg Supp.rect, 10 MG WI DAILY PRN for CONSTIPATION, (Reported) Diphenoxylate HCl/Atropine (Diphenoxylate-Atrop 2.5-0.025) 1 Each Tablet, 1 TAB PO DAILY PRN for DIARRHEA, (Reported) Ipratropium/Albuterol Sulfate (Iprat-Albut 0.5-3(2.5) mg/3 ml) 3 Ml Ampul.neb, 3 ML INH TID PRN for SHORTNESS OF BREATH, (Reported) Lorazepam (Ativan) 1 Mg Tablet, 1 MG PO Q2HP PRN for ANXIETY Methyl Salicylate/Menthol (Muscle Rub Cream) 85 Gm Cream..g., 1 DOSE TOP TIDP WI N for NECK PAIN Morphine Sulfate (Morphine Sulfate Concentrate) 100 Mg/5 Ml Solution, 2 MG SL Q2HP PRN for SEVERE PAIN (PS 8-10) Ondansetron HCl (Ondansetron HCl) 4 Mg Tablet, 4 MG PO Q8H PRN for NAUSEA OR VOMITING, (Reported) Tramadol HCl (Tramadol HCl) 50 Mg Tablet, 50 MG PO BID PRN for PAIN, (Reported) Allergies Coded Allergies: Sulfa (Sulfonamide Antibiotics) (Verified Adverse Reaction, Unknown, VOMIT, 10/12/20) PETERSON GILLETTE MD Jan 12, 2021 13:46
[2021-01-12] MEDS: ACETAMINOPHEN TAB 650MG DOSE (2X325MG) PO PRN (17:25)
[2021-01-12] MEDS: LATANOPROST 0.005% OPHTH SOLN 2.5 ML OU SCH (20:50)
[2021-01-13] MEDS: SYMBICORT 160/4.5MCG INHALER 6GM INH SCH ×2 (07:26→19:52)
[2021-01-13] MEDS: OMEPRAZOLE 20 MG CAP PO SCH (09:49)
[2021-01-13] MEDS: LORazepam 1 MG TAB PO PRN ×2 (11:33→14:01)
[2021-01-13] MEDS: ONDANSETRON 4 MG ORAL DISINTEGRATING TAB PO PRN (11:34)
[2021-01-13] MEDS ORDERED: LIDOCAINE VISCOUS 2% SOLN 15ML UDC SSP PRN (13:50)
[2021-01-13] MEDS: SCOPOLAMINE 1MG TRANSDERMAL PATCH TOP PRN (13:51)
[2021-01-13] MEDS: MORPHINE 10MG/0.5ML ORAL CONCENTRATE SOLUTION U/D SL PRN (14:01)
[2021-01-13] MEDS: LATANOPROST 0.005% OPHTH SOLN 2.5 ML OU SCH (21:00)
[2021-01-14] MEDS: IPRATROPIUM 0.5MG/ALBUTEROL 2.5MG INH SOL UD 3ML (DUONEB) INH PRN (01:46)
[2021-01-14] MEDS: MORPHINE 10MG/0.5ML ORAL CONCENTRATE SOLUTION U/D SL PRN (02:03)
[2021-01-14] MEDS: SYMBICORT 160/4.5MCG INHALER 6GM INH SCH (07:36)
== END 2021-01-14 11:08 | disposition expired | DRG 951 ==
LOC: M ED 18:54 → M ED INP 21:18 → ENRESERV 21:51 → M MSPAV 22:21
PROVIDERS: ADMIT Internal Medicine; ATTEND Internal Medicine
DX: Z51.5 Encounter for palliative care (principal); J18.9 Pneumonia, unspecified organism; C18.9 Malignant neoplasm of colon, unspecified; C78.7 Secondary malignant neoplasm of liver and intrahepatic bile duct; J96.11 Chronic respiratory failure with hypoxia; N17.9 Acute kidney failure, unspecified; D63.0 Anemia in neoplastic disease; R53.81 Other malaise; N40.0 Benign prostatic hyperplasia without lower urinary tract symptoms; N18.2 Chronic kidney disease, stage 2 (mild); J44.9 Chronic obstructive pulmonary disease, unspecified; Z66 Do not resuscitate; M11.20 Other chondrocalcinosis, unspecified site; Z99.81 Dependence on supplemental oxygen; I27.20 Pulmonary hypertension, unspecified; I25.10 Atherosclerotic heart disease of native coronary artery without angina pectoris; I12.9 Hypertensive chronic kidney disease with stage 1 through stage 4 chronic kidney disease, or unspecified chronic kidney disease; E55.9 Vitamin D deficiency, unspecified; Z79.82 Long term (current) use of aspirin; Z79.899 Other long term (current) drug therapy; Z88.2 Allergy status to sulfonamides